=== PATIENT | female | born 1990 | race Caucasian/White ===

== ENCOUNTER → 2017-11-26 15:15 | Outpatient (CLI) | payer SELFPAY ==
[2017-11-26 18:36] LABS: Chlamydia Trachomatis by PCR Negative (Negative); Neisserai gonorrhoeae by PCR Negative (Negative); Probe Check PASS; Sample Adequacy Control PASS; Specimen Processing Control PASS
== END ==
PROVIDERS: Visit Provider Obstetrics & Gynecology
DX: Z12.4 Encounter for screening for malignant neoplasm of cervix (principal); Z11.3 Encounter for screening for infections with a predominantly sexual mode of transmission
CPT/HCPCS: 87491; 87591

== ENCOUNTER → 2017-12-03 13:40 | Outpatient (CLI) | payer MEDICAID, SELFPAY ==
[2017-12-03 15:44] LABS: Absolute Lymphocyte Count 2.38 X10^3/ul (0.83-4.51); Absolute Neutrophil Count 4.7 X10^3/uL (2.0-7.7); Basophil# 0.02 X10^3/uL; Basophil% 0.3 % (0-1); Eosinophil# 0.13 X10^3/uL; Eosinophils% 1.7 % (0-5); Hematocrit 33.8 % (37-47); Hemoglobin 11.6 g/dl (12.0-15.0); Lymphocyte # 2.38 X10^3/ul (4.0); Lymphocyte % 31.3 % (19-41); Mean Corp Hgb Conc 34.3 g/gl (32-36); Mean Corpuscular Hgb 30.1 pg (27.0-32.0); Mean Corpuscular Volume 87.6 fL (81-99); Mean Platelet Vol. 10.6 fl (6.2-12.0); Monocyte# 0.39 X10^3/uL; Monocyte% 5.1 % (0-10); Neutrophil # 4.67 X10^3/uL (2.7-7.7); Neutrophil % 61.5 % (47-70); Platelet Count 196 K/mm3 (150-450); RBC Distribution Width CV 12.6 % (11.6-14.6); RBC Distribution Width SD 39.4 fl (35.1-43.9); Red Blood Count 3.86 M/mm3 (4.2-5.4); White Blood Count 7.6 K/mm3 (4.4-11.0)
[2017-12-03 15:48] LABS: POSITIVE COUNT NO; POSITIVE DIFFERENTIAL NO; POSITIVE MORPHOLOGY NO
[2017-12-03 15:58] LABS: Color, Urine Yellow (Yellow); Glucose, Dipstick Normal (Normal); Ketone-Dipstick Negative (Negative); Leukocyte Esterase-Dipstick Negative /ul (Negative); Nitrite-Dipstick Negative (Negative); Occult Blood-Urine Negative /ul (Negative); Protein-Dipstick Negative (Negative); Specific Gravity, Urine 1.005 (1.002-1.030); Urine Bilirubin Dipstick Negative (Negative); Urine Clarity Clear (Clear); Urine Urobilinogen Normal (Normal)
[2017-12-03 16:28] LABS: Amphetamine Urine VISTA NEGATIVE (<1000 ng/mL); Barbiturate Urine VISTA NEGATIVE (< 200 ng/mL); Benzodiazepine Urine VISTA NEGATIVE (< 200 ng/mL); Cocaine Urine VISTA NEGATIVE (< 300 ng/mL); Ecstacy Urine VISTA NEGATIVE (< 500 ng/mL); Methadone Urine VISTA NEGATIVE (< 300 ng/mL); PCP Urine VISTA NEGATIVE (< 25 ng/mL); THC Urine VISTA NEGATIVE (< 50 ng/mL); Thyroid Stim Hormone (TSH) 0.05 uIU/mL (0.358-3.74); Vista UDS pH Range 7
[2017-12-03 16:57] LABS: HIV - WCH Non-Reactive (Nonreactive); Rubella IgG 227.9 IU/mL
[2017-12-03 16:58] LABS: COTININE Drug Screen Positive (<200 ng/mL)
[2017-12-05 08:22] LABS: HEPATITIS B SURFACE AG Negative (Negative); Hep C Antibodies 0.1 s/co ratio (0.0-0.9)
[2017-12-07 00:18] LABS: Prenatal RPR NONREACTIVE (NONREACTIVE)
== END ==
PROVIDERS: Visit Provider Obstetrics & Gynecology
DX: Z34.81 Encounter for supervision of other normal pregnancy, first trimester (principal)
CPT/HCPCS: 36415; 80307; 81002; 84443; 85025; 86703; 86762; 86803; 87340

== ENCOUNTER 2018-03-17 10:52 | Outpatient (CLI) | payer SELFPAY ==
[2018-03-17 11:12] VITALS: BMI 26.5
[2018-03-17 11:38] LABS: Color, Urine Yellow (Yellow); Glucose, Dipstick Normal (Normal); Ketone-Dipstick Negative (Negative); Leukocyte Esterase-Dipstick 100 /ul (Negative); Nitrite-Dipstick Negative (Negative); Occult Blood-Urine Negative /ul (Negative); Protein-Dipstick Negative (Negative); Specific Gravity, Urine 1.015 (1.002-1.030); Urine Bilirubin Dipstick Negative (Negative); Urine Clarity Sl. Cloudy (Clear); Urine Urobilinogen Normal (Normal); Urine pH 6.5 (5.0 - 8.0)
--- NOTE | 2018-03-18 11:33 | OB.TRI.HP_ITS ---
History of Present Illness Was patient seen by the physician?: Yes Reason For Visit: LOWER ABDOMINAL PRESSURE Date of Service: 03/17/18 Final CALEB: 06/24/18 Final CALEB Source: US <20 weeks Gestational age: 25 Weeks and 6 Days History of Present Illness: 25+ week intrauterine who presents with severe pelvic pain after lifting her child. She denies any contractions, bleeding, vaginal discharge. Good movement noted. Allergies No Known Allergies Allergy (Verified 03/17/18 11:31) Laboratory Studies: Laboratory Tests 03/17/18 Range/Units 10:55 Urine Color Yellow (Yellow) Urine Clarity Sl. Cloudy (Clear) Urine pH 6.5 (5.0 - 8.0) Ur Specific [place] 1.015 (1.002-1.030) Urine Protein Negative (Negative) mg/dl Urine Glucose (UA) Normal (Normal) mg/dl Urine Ketones Negative (Negative) mg/dl Urine Occult Blood Negative (Negative) /ul Urine Nitrite Negative (Negative) Urine Bilirubin Negative (Negative) mg/dL Urine Urobilinogen Normal (Normal) mg/dl Ur Leukocyte Esterase 100 H (Negative) /ul NST - FHR Rate Baby A NST Reactive:: Appropriate for gestational age Impression/Plan 25+ week intrauterine with severe symphysis pubis pain and round ligament pain. Recommended Tylenol as needed at home. UA sent and was negative. Return for routine follow-up in the office. heart tones were reassuring.
== END 2018-03-17 11:55 | disposition home or self-care (01) ==
LOC: WPOUT 11:00 → WP 11:01
PROVIDERS: Visit Provider Obstetrics & Gynecology
DX: O26.892 Other specified pregnancy related conditions, second trimester (principal); R10.2 Pelvic and perineal pain
CPT/HCPCS: 59050; 81002; 87086; 87088; 99218; G0378

== ENCOUNTER → 2018-04-03 13:40 | Outpatient (CLI) | payer SELFPAY ==
[2018-04-03 16:00] LABS: Hematocrit 32.2 % (37-47); Hemoglobin 10.9 g/dl (12.0-15.0); Mean Corp Hgb Conc 33.9 g/gl (32-36); Mean Corpuscular Hgb 30.4 pg (27.0-32.0); Mean Corpuscular Volume 89.7 fL (81-99); Mean Platelet Vol. 10.3 fl (6.2-12.0); Platelet Count 212 K/mm3 (150-450); RBC Distribution Width CV 12.5 % (11.6-14.6); RBC Distribution Width SD 39.6 fl (35.1-43.9); Red Blood Count 3.59 M/mm3 (4.2-5.4); White Blood Count 9.4 K/mm3 (4.4-11.0)
[2018-04-03 16:03] LABS: Scan Indicated on CBC? Y/N NO
[2018-04-03 16:05] LABS: Glucose Challenge Gest 1H 50g 111 mg/dL (70-140); Thyroid Stim Hormone (TSH) 0.45 uIU/mL (0.358-3.74)
--- OUTSIDE RECORDS SUMMARY | 2018-05-29 23:08 | XMS RPT_ITS ---
:1990 Author Organization OHIP Support Name Relationship Address Phone REEMA DUBON Unavailable [address] + [place] [address] UE Unavailable Unavailable Unavailable REEMA DUBON Unavailable [address] + [place] [address] UE Unavailable Unavailable Unavailable FORTE, WILFREDO Unavailable [address] + [place] [address] REEMA BAIN Unavailable [address] [place] [address] NOT GIVEN Unavailable Unavailable Unavailable UE Unavailable Unavailable Unavailable UE Unavailable Unavailable Unavailable FORTE, WILFREDO Unavailable [address] + [place] [address] REEMA BAIN Unavailable [address] [place] [address] NOT GIVEN Unavailable Unavailable Unavailable FORTE, WILFREDO Unavailable [address] + [place] [address] REEMA BAIN Unavailable [address] [place] [address] NOT GIVEN Unavailable Unavailable Unavailable FORTE, WILFREDO Unavailable [address] + [place] [address] REEMA BAIN Unavailable [address] [place] [address] NOT GIVEN Unavailable Unavailable Unavailable FORTE, WILFREDO Unavailable [address] + [place] [address] REEMA BAIN Unavailable [address] [place] [address] NOT GIVEN Unavailable Unavailable Unavailable FORTE, WILFREDO Unavailable [address] + [place] [address] REEMA BAIN Unavailable [address] [place] [address] NOT GIVEN Unavailable Unavailable Unavailable FORTE, WILFREDO Unavailable [address] + [place] [address] REEMA BAIN Unavailable [address] [place] [address] NOT GIVEN Unavailable Unavailable Unavailable WILFREDO FORTE Unavailable [address] + [place] [address] REEMA BAIN Unavailable [address] [place] [address] NOT GIVEN Unavailable Unavailable Unavailable Care Team Providers Name Role Phone Pieter Manriquez Attending Unavailable Pieter Manriquez Attending Unavailable Pieter Manriquez Attending Unavailable Mitra, Pieter Attending Unavailable MARGARITA, DR DAVIDA HARRIS Admitting Unavailable MARGARITA, DR DAVIDA HARRIS Attending Unavailable MARGARITA, DR DAVIDA HARRIS Primary Care Unavailable MARGARITA, DR DAVIDA HARRIS Admitting Unavailable MARGARITA, DR DAVIDA HARRIS Attending Unavailable MARGARITA, DR DAVIDA HARRIS Primary Care Unavailable CLINT SALMON Admitting Unavailable LUIS ANTONIO, CLINT Attending Unavailable CLINT SALMON Primary Care Unavailable MARGARITA, DR DAVIDA HARRIS Admitting Unavailable MARGARITA, DR DAVIDA HARRIS Attending Unavailable MARGARITA, DR DAVIDA HARRIS Primary Care Unavailable VACCARIELLO, PIETER Consulting Unavailable PROVIDER, UNKNOWN Consulting Unavailable PROVIDER, UNKNOWN Consulting Unavailable PROVIDER, UNKNOWN Consulting Unavailable MARGARITA, DR DAVIDA HARRIS Admitting Unavailable MARGARITA, DR DAVIDA HARRIS Attending Unavailable MARGARITA, DR DAVIDA HARRIS Primary Care Unavailable VACCARIELLO, PIETER Consulting Unavailable PROVIDER, UNKNOWN Consulting Unavailable PROVIDER, UNKNOWN Consulting Unavailable PROVIDER, UNKNOWN Consulting Unavailable MARGARITA, DR DAVIDA HARRIS Admitting Unavailable MARGARITA, DR DAVIDA HARRIS Attending Unavailable MARGARITA, DR DAVIDA HARRIS Primary Care Unavailable VACCARIELLO, PIETER Consulting Unavailable PROVIDER, UNKNOWN Consulting Unavailable PROVIDER, UNKNOWN Consulting Unavailable PROVIDER, UNKNOWN Consulting Unavailable MARGARITA, DR DAVIDA HARRIS Admitting Unavailable MARGARITA, DR DAVIDA HARRIS Attending Unavailable MARGARITA, DR DAVIDA HARRIS Primary Care Unavailable VACCARIELLO, PIETER Consulting Unavailable PROVIDER, UNKNOWN Consulting Unavailable PROVIDER, UNKNOWN Consulting Unavailable PROVIDER, UNKNOWN Consulting Unavailable MARGARITA, DR DAVIDA HARRIS Admitting Unavailable MARGARITA, DR DAVIDA HARRIS Attending Unavailable MARGARITA, DR DAVIDA HARRIS Primary Care Unavailable VACCARIELLO, PIETER Consulting Unavailable PROVIDER, UNKNOWN Consulting Unavailable PROVIDER, UNKNOWN Consulting Unavailable PROVIDER, UNKNOWN Consulting Unavailable Clint Penaloza Attending Unavailable Clint Penaloza Attending Unavailable PROBLEMS PROBLEMS DATE TYPE CONDITION / CODE ATTENDING STATUS SOURCE 04/03/2018 Unknown Z34.83 - Encounter Pieter Manriquez for supervision of [facility] normal Hospital , third Repository trimester / Z34.83(ICD-10) 12/03/2017 Unknown Z34.81 - Encounter Pieter Manriquez for supervision of [facility] other normal Hospital , first Repository trimester / Z34.81(ICD-10) 12/14/2017 Unknown Z12.4 - Encounter Pieter Manriquez for screening for [facility] malignant neoplasm Hospital of cervix / Repository Z12.4(ICD-10) 11/19/[address] Mary AVILA Diagnosis diffuse goiter DAVIDA HARRIS [facility] without thyrotoxic Hospital crisis or storm / Repository E0500(ICD-10) 11/19/[address] Mary AVILA Diagnosis diffuse goiter DAVIDA HARRIS [facility] without thyrotoxic Hospital crisis or storm / Repository E0500(ICD-10) 06/08/2017 Admitting Unknown / Mary Penaloza [facility] Medical diagnosis UNK(Unknown) Clint Andrew [facility] Repository PROCEDURES PROCEDURES No Procedure Records FoundRESULTS RESULTS CBC-COMPLETE BLOOD CNT Collected: 04/03/2018 Status: F Source: [place] NO DIFF 1:45 PM [facility] TYPE CODE TESTS RESULT OUT OF RANGE REFERENCE UNITS LAB L100.1000 4.4-11.0 K/mm3 Normal WBC 9.4 LAB L100.1200 4.2-5.4 M/mm3 Low RBC 3.59 LAB L100.1300 12.0-15.0 g/dl Low HGB 10.9 LAB L100.1400 37-47 % Low HCT 32.2 LAB L100.1500 81-99 fL Normal MCV 89.7 LAB L100.1600 27.0-32.0 pg Normal MCH 30.4 LAB L100.1700 32-36 g/gl Normal MCHC 33.9 LAB L100.1810 11.6-14.6 % Normal RDW CV 12.5 LAB L100.1820 35.1-43.9 fl Normal RDW SD 39.6 LAB L100.1900 150-450 K/mm3 Normal PLT 212 LAB L100.2000 6.2-12.0 fl Normal MPV 10.3 Performed By: #### L100.0500 #### [facility] [address] [place], [place], [address] GLUCOSE CHALLENGE GEST Collected: 04/03/2018 Status: F Source: [place] 1H 50G 1:45 PM [facility] Order Comment: ADD TO GLUCH TUBE TYPE CODE TESTS RESULT OUT OF RANGE REFERENCE UNITS LAB L501.0250 70-140 mg/dL Normal GLU GEST 111 50g 1H Performed By: #### L501.0250, L501.9520 #### [facility] [address] [place], [address] THYROID STIM HORMONE Collected: 04/03/2018 Status: F Source: [place] (TSH) 1:45 PM [facility] Order Comment: ADD TO GLUCH TUBE TYPE CODE TESTS RESULT OUT OF RANGE REFERENCE UNITS LAB L501.9520 0.358-3.74 uIU/mL Normal TSH 0.45 Performed By: #### L501.0250, L501.9520 #### [facility] [address] [place], [address] ANTIBODY SCREEN Collected: 04/03/2018 Status: F Source: [place] 1:45 PM [facility] TYPE CODE TESTS RESULT OUT OF RANGE REFERENCE UNITS LAB B100.4000 Normal Antibody NEGATIVE Screen Performed By: #### B100.4000 #### [facility] [address] [place], [address] URINALYSIS, ROUTINE Collected: 03/17/2018 Status: F Source: [place] (DIPSTICK) 10:55 AM [facility] Order Comment: How was Urine Obtained? HAND HARDENER TO SPECIFY TYPE CODE TESTS RESULT OUT OF RANGE REFERENCE UNITS LAB L400.3000 Yellow COLOR Normal Yellow LAB L400.3050 Clear Normal CLARITY Sl. Cloudy LAB L400.3200 Normal mg/dl Normal GLUCOSE, UR Normal LAB L400.3300 Negative mg/dL Normal BILIRUBIN URINE Negative LAB L400.3400 Negative mg/dl Normal KETONE UR Negative LAB L400.3465 1.002-1.030 Normal SP.GR. DIPSTX 1.015 LAB L400.3550 5.0 - 8.0 pH UR Normal 6.5 LAB L400.3600 Negative mg/dl PROT Normal DIPSTX Negative LAB L400.3700 Normal mg/dl Normal UROBILI Normal LAB L400.3750 Negative Normal NITRITE UR Negative LAB L400.3780 Negative /ul Normal OCCULT BLOOD-UR Negative LAB L400.3800 Negative /ul High LEUK ESTERASE 100 Performed By: #### L400.2011 #### [facility] [address] [place], [place], [address] Observed: 03/17/2018 Status: F Source: [place] CULTURE, URINE 10:55 AM [facility] Urine Culture Below infection level. ORGANISM 1: Mixed Gram Positive Organisms [place] Count 1000-10,000 Performed By: #### M100.0650 #### [facility] [address], [address] TSH Collected: 01/11/2018 Status: F Source: [facility] 2:27 PM [place] REPOSITORY TYPE CODE TESTS RESULT OUT OF RANGE REFERENCE UNITS LAB TSH(LOINC) 0.34 - 5.60 uIU/ml TSH 0.55 Performed By: #### [id number] #### [facility],[address] [place], [place] [address] T4-FREE (FREE Collected: 01/11/2018 Status: F Source: [facility] THYROXINE) 2:27 PM [place] REPOSITORY TYPE CODE TESTS RESULT OUT OF RANGE REFERENCE UNITS LAB T4 0.61 - 1.12 ng/dl FREE(LOINC) T4 FREE 0.80 Result Comment: *SPECIMENS FROM PATIENTS WHO ARE UNDERGOING BIOTIN THERAPY AND/OR INGESTING BIOTIN SUPPLEMENTS MAY HAVE FALSE HIGH RESULTS. Performed By: #### [id number] #### [facility],[address] [place] [address] T3, FREE Collected: 01/11/2018 Status: F Source: [facility] 2:27 PM [place] REPOSITORY TYPE CODE TESTS RESULT OUT OF RANGE REFERENCE UNITS LAB T3, FREE(LOINC) T3, FREE Result Comment: _T3, FREE_ T3, FREE Reported: 01/14/2018 07:20 Status=F TEST RESULT FLAG RANGE UNITS T3, FREE 2.6 2.3-4.2 pg/mL 01/14/18.0734.rfl.COMPLETE.AMRR .3051-0 Test Performed by [email or web address], [employer] [facility], [address] [place] [address] Karthik Gonzales M.D., Ph.D., Director of Laboratories , [facility] [id number] Performed By: #### [id number] #### [facility],[address] [place] [address] URINE DRUG SCREEN Collected: 12/03/2017 Status: F Source: [place] (VISTA) 1:50 PM [facility] Order Comment: List of Drugs Taken or Suspected? UNK TYPE CODE TESTS RESULT OUT OF RANGE REFERENCE UNITS LAB L505.0075 TO BE Normal CONFIRMED Result Comment: CONFIRMATORY TESTING FOR ALL POSITIVE URINE DRUG SCREEN RESULTS WILL ONLY BE SENT OUT UPON PHYSICIAN ORDER. VISTA Urine Drug Screen methods provide only preliminary analytical test results. A more specific alternate chemical method must be used in order to obtain a confirmed analytical result. Gas chromatography/mass spectrometery (GC/MS) is the preferred confirmatory method. Clinical consideration and professional judgement should be applied to any drug of abuse test result, particularly when preliminary positive results are used. URINE TCA TESTING MUST BE ORDERED SEPARATELY. USE TEST MNEMONIC: [facility] LAB L505.5005 VISTA UDS PH 7 Normal LAB L505.5015 <1000 ng/mL AMPHETAMINES Normal NEGATIVE LAB L505.5025 < 200 ng/mL BARBITIURATES Normal NEGATIVE LAB L505.5035 < 200 ng/mL BENZODIAZIPINE Normal NEGATIVE LAB L505.5045 < 300 ng/mL COCAINE Normal NEGATIVE LAB L505.5055 < 500 ng/mL ECSTACY Normal NEGATIVE LAB L505.5065 < 300 ng/mL METHADONE Normal NEGATIVE LAB L505.5075 < 300 ng/mL OPIATES Normal NEGATIVE LAB L505.5085 < 25 ng/mL PCP Normal NEGATIVE LAB L505.5095 < 50 ng/mL THC Normal NEGATIVE Performed By: #### L505.5000, L505.6240 #### [facility] [address] [facility]. [place], [place], [address] NICOTINE URINE DRUG Collected: 12/03/2017 Status: F Source: [place] SCREEN 1:50 PM [facility] Order Comment: List of Drugs Taken or Suspected? UNK TYPE CODE TESTS RESULT OUT OF RANGE REFERENCE UNITS LAB L505.6250 TO BE Normal CONFIRMED Result Comment: CONFIRMATORY TESTING FOR ALL POSITIVE URINE DRUG SCREEN RESULTS WILL ONLY BE SENT OUT UPON PHYSICIAN ORDER. The results of Urine Drug Screen methods provide only preliminary analytical test results. A more specific alternate chemical method must be used in order to obtain a confirmed analytical result. Gas chromatography/mass spectrometery (GC/MS) is the preferred confirmatory method. Clinical consideration and professional judgement should be applied to any drug of abuse test result, particularly when preliminary positive results are used. LAB L505.6270 <200 ng/mL High COT DRG Positive SCREEN Result Comment: Cotinine is the first-stage metabolite of Nicotine. Performed By: #### L505.5000, L505.6240 #### [facility] [address] [facility] [place], [place], [address] CBC W/DIFF, AUTOMATED Collected: 12/03/2017 Status: F Source: [place] 1:50 PM [facility] TYPE CODE TESTS RESULT OUT OF RANGE REFERENCE UNITS LAB L100.1000 4.4-11.0 K/mm3 Normal WBC 7.6 LAB L100.1200 4.2-5.4 M/mm3 Low RBC 3.86 LAB L100.1300 12.0-15.0 g/dl Low HGB 11.6 LAB L100.1400 37-47 % Low HCT 33.8 LAB L100.1500 81-99 fL Normal MCV 87.6 LAB L100.1600 27.0-32.0 pg Normal MCH 30.1 LAB L100.1700 32-36 g/gl Normal MCHC 34.3 LAB L100.1810 11.6-14.6 % Normal RDW CV 12.6 LAB L100.1820 35.1-43.9 fl Normal RDW SD 39.4 LAB L100.1900 150-450 K/mm3 Normal PLT 196 LAB L100.2000 6.2-12.0 fl Normal MPV 10.6 LAB L100.2100 47-70 % Normal NEUT% 61.5 LAB L100.2200 19-41 % Normal LY% 31.3 LAB L100.2300 0-10 % Normal MONO% 5.1 LAB L100.2400 0-5 % Normal EO% 1.7 LAB L100.2500 0-1 % Normal BASO% 0.3 LAB L100.2550 0.0-0.9 % Normal IM GRAN % 0.100 Result Comment: IG% - Immature Granulocytes (promyelocytes, myelocytes and metamyelocytes) > 1% indicates that a LEFT SHIFT is Present. LAB L100.2620 2.0-7.7 X10 3/uL Normal Absolute Neut 4.7 LAB L100.2720 0.83-4.51 X10 3/ul Normal Absolute Lymph 2.38 Performed By: #### L100.0100 #### [facility] [address] [place], [place], [address] URINALYSIS, ROUTINE Collected: 12/03/2017 Status: F Source: [place] (DIPSTICK) 1:50 PM [facility] Order Comment: How was Urine Obtained? Urine, Random TYPE CODE TESTS RESULT OUT OF RANGE REFERENCE UNITS LAB L400.3000 Yellow COLOR Normal Yellow LAB L400.3050 Clear Normal CLARITY Clear LAB L400.3200 Normal mg/dl Normal GLUCOSE, UR Normal LAB L400.3300 Negative mg/dL Normal BILIRUBIN URINE Negative LAB L400.3400 Negative mg/dl Normal KETONE UR Negative LAB L400.3465 1.002-1.030 Normal SP.GR. DIPSTX 1.005 LAB L400.3550 5.0 - 8.0 pH UR Normal 7.0 LAB L400.3600 Negative mg/dl PROT Normal DIPSTX Negative LAB L400.3700 Normal mg/dl Normal UROBILI Normal LAB L400.3750 Negative Normal NITRITE UR Negative LAB L400.3780 Negative /ul Normal OCCULT BLOOD-UR Negative LAB L400.3800 Negative /ul LEUK Normal ESTERASE Negative Performed By: #### L400.2010 #### [facility] [address] [facility] [address] THYROID STIM HORMONE Collected: 12/03/2017 Status: F Source: [place] (TSH) 1:50 PM [facility] TYPE CODE TESTS RESULT OUT OF RANGE REFERENCE UNITS LAB L501.9520 0.358-3.74 uIU/mL Low TSH 0.05 Performed By: #### L501.9520 #### [facility] [address] RUBELLA IGG Collected: 12/03/2017 Status: F Source: [place] 1:50 PM [facility] TYPE CODE TESTS RESULT OUT OF RANGE REFERENCE UNITS LAB L509.4000 IU/mL Normal Rubella IgG 227.9 Result Comment: Antibody results Interpretation of Immune Status < 5 IU/ml Presumed Non-immune 5 - < 10 IU/ml Equivocal > or = 10 IU/ml Presumed Immune Performed By: #### L509.4000, L3890.6005 #### [facility] [place], [place], [address] HIV - WCH Collected: 12/03/2017 Status: F Source: [place] 1:50 PM [facility] TYPE CODE TESTS RESULT OUT OF RANGE REFERENCE UNITS LAB L3890.6005 Nonreactive Normal HIV - [facility] Non-Reactive Performed By: #### L509.4000, L3890.6005 #### [facility] [address] T AND S-NO Collected: 12/03/2017 Status: F Source: [place] CHARGE W/PNP 1:50 PM [facility] Order Comment: Reason for Type AND Screen/Red Cells: Surgery? N TYPE CODE TESTS RESULT OUT OF RANGE REFERENCE UNITS LAB B10.0800 A Normal BLOOD NEGATIVE TYPE GEL LAB B100.4050 Normal Ab SCREEN NEGATIVE GEL Performed By: #### B100.7550 #### [facility] [address] [facility] [place], [place], [address] HEPATITIS B SURFACE Collected: 12/03/2017 Status: F Source: [place] AG 1:50 PM [facility] TYPE CODE TESTS RESULT OUT OF RANGE REFERENCE UNITS LAB L3100.0400 Negative Normal HB Negative SURF AG Result Comment: Performed at: [facility] [id number] Front Office Assistant: Dean Lloyd PhD, Phone: [phone] Performed By: #### L3100.0390, L3100.0625 #### [facility] (refer to report for specific site) refer to report for address and phone number HEPATITIS C ANTIBODIES Collected: 12/03/2017 Status: F Source: [place] 1:50 PM [facility] TYPE CODE TESTS RESULT OUT OF RANGE REFERENCE UNITS LAB L3100.0650 0.0-0.9 s/co ratio Normal HEP C AB 0.1 Result Comment: Negative: < 0.8 Indeterminate: 0.8 - 0.9 Positive: > 0.9 The CDC recommends that a positive HCV antibody result be followed up with a HCV Nucleic Acid Amplification test (218792). Performed By: #### L3100.0390, L3100.0625 #### [facility] (refer to report for specific site) refer to report for address and phone number RPR Collected: 12/03/2017 Status: F Source: [place] 1:50 PM [facility] TYPE CODE TESTS RESULT OUT OF REFERENCE UNITS RANGE LAB L700.5100 NONREACTIVE Normal RPR NONREACTIVE Performed By: #### L700.5100 #### [facility] [address] [facility]. [place], [place], [id number] CT/NG WCH BY PCR Collected: 11/26/2017 Status: F Source: [place] 2:00 PM [facility] TYPE CODE TESTS RESULT OUT OF RANGE REFERENCE UNITS LAB L8200.2100 Negative Normal Chlam Negative Trac PCR LAB L8200.2200 Negative Normal NG by Negative PCR Performed By: #### L8200.2000 #### [facility] [address] [facility] [place], [address] T4-FREE (FREE Collected: 11/19/2017 Status: F Source: [facility] THYROXINE) 7:20 PM [place] REPOSITORY TYPE CODE TESTS RESULT OUT OF RANGE REFERENCE UNITS LAB T4 0.61 - 1.12 ng/dl FREE(LOINC) T4 FREE 0.74 Result Comment: *SPECIMENS FROM PATIENTS WHO ARE UNDERGOING BIOTIN THERAPY AND/OR INGESTING BIOTIN SUPPLEMENTS MAY HAVE FALSE HIGH RESULTS. Performed By: #### [id number] #### [address] [address] TSH Collected: 11/19/2017 Status: F Source: [facility] 7:20 PM [place] REPOSITORY TYPE CODE TESTS RESULT OUT OF RANGE REFERENCE UNITS LAB TSH(LOINC) 0.34 - 5.60 uIU/ml Low TSH 0.09 Performed By: #### [id number] #### [address] [address] T3, FREE Collected: 11/19/2017 Status: F Source: [facility] 7:20 [facility] REPOSITORY TYPE CODE TESTS RESULT OUT OF RANGE REFERENCE UNITS LAB T3, FREE(LOINC) T3, FREE Result Comment: _T3, FREE_ T3, FREE Reported: 11/22/2017 13:04 Status=F TEST RESULT FLAG RANGE UNITS T3, FREE 2.8 2.3-4.2 pg/mL 11/22/17.1316.Neelam.AMRR .3051-0 Test Performed by Angela Aguirre [email or web address] [facility], [address] [place] [address] Karthik Gonzales M.D., Ph.D., Director of Laboratories , [facility] [id number] Performed By: #### [id number] #### [facility],[address] [place], [place] [address] T4-FREE (FREE Collected: 10/26/2017 Status: F Source: [facility] THYROXINE) 3:10 PM [place] REPOSITORY TYPE CODE TESTS RESULT OUT OF RANGE REFERENCE UNITS LAB T4 0.61 - 1.12 ng/dl FREE(LOINC) T4 FREE 0.82 Result Comment: *SPECIMENS FROM PATIENTS WHO ARE UNDERGOING BIOTIN THERAPY AND/OR INGESTING BIOTIN SUPPLEMENTS MAY HAVE FALSE HIGH RESULTS. Performed By: #### [id number] #### [facility],[address] [place], [place] [id number] TSH Collected: 10/26/2017 Status: F Source: [facility] 3:10 PM [place] REPOSITORY TYPE CODE TESTS RESULT OUT OF RANGE REFERENCE UNITS LAB TSH(LOINC) 0.34 - 5.60 uIU/ml Low TSH 0.02 Performed By: #### [id number] #### [facility],[address] [place], [place] [address] T3, FREE Collected: 10/26/2017 Status: F Source: [facility] 3:10 PM [place] REPOSITORY TYPE CODE TESTS RESULT OUT OF RANGE REFERENCE UNITS LAB T3, FREE(LOINC) T3, FREE Result Comment: _T3, FREE_ T3, FREE Reported: 10/30/2017 13:44 Status=F TEST RESULT FLAG RANGE UNITS T3, FREE 3.3 2.3-4.2 pg/mL 10/30/17.1355.Neelam.AMRR .3051-0 Test Performed by [email or web address], [email or web address] [facility], [address] [place] [address] Karthik Gonzales M.D., Ph.D., Director of Laboratories , CLIA [id number] Performed By: #### [id number] #### [facility],[address] [place], [place] [address] T4-FREE (FREE Collected: 09/06/2017 Status: F Source: [facility] THYROXINE) 1:30 PM [place] REPOSITORY TYPE CODE TESTS RESULT OUT OF RANGE REFERENCE UNITS LAB T4 0.61 - 1.12 ng/dl FREE(LOINC) T4 FREE 0.80 Result Comment: *SPECIMENS FROM PATIENTS WHO ARE UNDERGOING BIOTIN THERAPY AND/OR INGESTING BIOTIN SUPPLEMENTS MAY HAVE FALSE HIGH RESULTS. Performed By: #### [id number] #### [facility],[address] [place], [place] [address] T3, FREE Collected: 09/06/2017 Status: F Source: [facility] 1:30 PM [place] REPOSITORY TYPE CODE TESTS RESULT OUT OF RANGE REFERENCE UNITS LAB T3, FREE(LOINC) T3, FREE Result Comment: _T3, FREE_ T3, FREE Reported: 09/13/2017 07:21 Status=F TEST RESULT FLAG RANGE UNITS T3, FREE 3.5 2.3-4.2 pg/mL 09/13/17.0733.rflBERTRAM.AMRR .3051-0 Test Performed by [email or web address], [employer] [facility], [address] [place] [address] Karthik Gonzales M.D., Ph.D., Director of Laboratories , CLIA [id number] Performed By: #### [id number] #### [place] [address] TSH Collected: 09/06/2017 Status: F Source: [place] 1:30 PM [place] REPOSITORY TYPE CODE TESTS RESULT OUT OF RANGE REFERENCE UNITS LAB TSH(LOINC) 0.34 - 5.60 uIU/ml Low TSH 0.01 Performed By: #### [id number] #### [place] [address] CMP WITH EGFR Collected: 07/11/2017 Status: F Source: [place] 11:03 AM [place] REPOSITORY TYPE CODE TESTS RESULT OUT OF RANGE REFERENCE UNITS LAB CMP with eGFR(LOINC) CMP with eGFR Result Comment: COMPREHENSIVE METABOLIC PANEL LAB SODIUM(LOINC) 136 - 145 mmol/l SODIUM 139 LAB POTASSIUM(LOINC) 3.5 - 5.1 mmol/L POTASSIUM 3.7 LAB CHLORIDE(LOINC) 98 - 107 mmol/L CHLORIDE 105 LAB CO2(LOINC) 21.0 - mmol/L 31.0 CO2 27.4 LAB GLUCOSE(LOINC) 74 - 106 mg/dl GLUCOSE 84 LAB BUN(LOINC) 6 - 20 mg/dl BUN 6 LAB CREATININE(LOINC) 0.6 - 1.2 mg/dl CREATININE 0.7 LAB AST/SGOT(LOINC) 13 - 39 U/L AST/SGOT Low 11 LAB ALK PHOS(LOINC) 38 - 126 U/L ALK PHOS 55 LAB CALCIUM(LOINC) 8.6 - mg/dl 10.2 CALCIUM 10.2 LAB TOTAL 6.4 - 8.3 g/dl PROTEIN(LOINC) TOTAL PROTEIN 7.2 LAB ALBUMIN(LOINC) 3.4 - 4.8 g/dL ALBUMIN 4.6 LAB GLOBULIN(LOINC) 1.5 - 3.8 G/DL GLOBULIN 2.6 LAB A/G RATIO(LOINC) 0.9 - 1.6 A/G High RATIO 1.8 LAB TOTAL BILI(LOINC) 0.0 - 1.5 mg/dl TOTAL BILI 0.4 LAB B/C RATIO(LOINC) 0 - 30 ratio B/C RATIO 9 LAB ALT/SGPT(LOINC) 8 - 35 U/L ALT/SGPT 9 LAB ANION GAP(LOINC) 10 - 20 mmol/L ANION GAP 10 LAB AGE(LOINC) years AGE 26 LAB eGFR(LOINC) 60 - 999 ML/MINUTE eGFR >60 LAB eGFR(AA)(LOINC) 60 - 999 ML/MINUTE eGFR(AA) >60 Result Comment: ACCORDING TO THE NATIONAL KIDNEY DISEASE EDUCATION PROGRAM(NKDE), A NORMAL eGFR IS A VALUE GREATER THAN OR EQUAL TO 60 ML/MIN/1.73 SQ METERS. CHRONIC KIDNEY DISEASE: <60mL/MIN/1.73 SQ METERS KIDNEY FAILURE: <15mL/MIN/1.73 SQ METERS THIS TEST SHOULD ONLY BE USED FOR PATIENTS 18 YEARS OF AGE AND OLDER. Performed By: #### [id number] #### [place] [address] TSH Collected: 07/11/2017 Status: F Source: [facility] 11:03 [facility] REPOSITORY TYPE CODE TESTS RESULT OUT OF RANGE REFERENCE UNITS LAB TSH(LOINC) 0.34 - 5.60 uIU/ml Low TSH 0.10 Performed By: #### [id number] #### [place] [address] T4-FREE (FREE Collected: 07/11/2017 Status: F Source: [facility] THYROXINE) 11:03 [facility] REPOSITORY TYPE CODE TESTS RESULT OUT OF RANGE REFERENCE UNITS LAB T4 0.61 - 1.12 ng/dl FREE(LOINC) T4 FREE 0.75 Result Comment: *SPECIMENS FROM PATIENTS WHO ARE UNDERGOING BIOTIN THERAPY AND/OR INGESTING BIOTIN SUPPLEMENTS MAY HAVE FALSE HIGH RESULTS. Performed By: #### [id number] #### [facility],[address] [place] [address] VITAMIN D, 25 Collected: 07/11/2017 Status: F Source: [facility] 11:03 [facility] REPOSITORY TYPE CODE TESTS RESULT OUT OF RANGE REFERENCE UNITS LAB VitD(LOINC) 30.00 - 100 ng/mL VitD 30.02 Result Comment: 25-OHD3 indicates both endogenous production and supplementation. 25-OHD2 is an indicator of exogenous sources, such as diet or supplementation. Therapy is based on measurement of Total 25-OHD, with levels <20 ng/mL indicative of Vitamin D deficiency, while levels between 20 ng/mL and 30 ng/mL suggest insufficiency. Optimal levels are >=30ng/mL. Vitamin D, 25-OH D3 Not Established Vitamin D, 25-OH D2 Not Established Performed By: #### [id number] #### [address] [address] T3, FREE Collected: 07/11/2017 Status: F Source: [facility] 11:03 [facility] REPOSITORY TYPE CODE TESTS RESULT OUT OF RANGE REFERENCE UNITS LAB T3, FREE(LOINC) T3, FREE Result Comment: _T3, FREE_ T3, FREE Reported: 07/13/2017 08:11 Status=F TEST RESULT FLAG RANGE UNITS T3, FREE 3.3 2.3-4.2 pg/mL 07/13/17.0823.rfl.COMPLETE.AMRR .3051-0 Test Performed by Angela Aguirre [email or web address], [address] [place] [address] Karthik Gonzales M.D., Ph.D., Director of Laboratories , [place] [id number] Performed By: #### [id number] #### [facility],[address] [place] [address] MODIFIED BARIUM Observed: 06/14/2017 Status: F Source: [facility] 1:46 PM [place] REPOSITORY [place] [id number] Patient: JEROME BAIN Phone#: : 1990 Age: 26 Gender: F Pt. Type: Out Account: [id number] Location: [facility] Ordering: CLINT SALMON Exam Date: 06/14/2017/13:04 Family Phys: Charge Code: [id number] Physician: Yates Order #: [id number] DLP Dose#: PROCEDURE: CINERADIOGRAPHY MODIFIED BARIUM SWALLOW COMPARISON: None. INDICATIONS: Dysphagia TECHNIQUE: A swallowing evaluation was performed with fluoroscopy and speech therapy in the usual manner. TOTAL DOSE: 36.52 mGy FINDINGS: ORAL PHASE: Normal deglutition. PHARYNGEAL PHASE: Normal swallowing. ASPIRATION: None. STRUCTURE: There is narrowing of the proximal esophagus presumably related to the thyroid compression based on clinical history. No visible obstruction, stricture, or dilatation. OTHER: There is poor peristalsis demonstrated. Pudding and mixed texture fluids were delayed in emptying. Emptying was facilitated with thin liquid. CONCLUSION: 1. Poor peristalsis is noted. Delay in emptying of esophageal contents is facilitated with a thin liquids. Dictated by: Tabatha Monroe MD on 06/14/2017 at 14:01 Approved by: Tabatha Monroe MD on 06/14/2017 at 14:01 T4-FREE (FREE Collected: 05/26/2017 Status: F Source: [facility] THYROXINE) 11:23 AM [place] REPOSITORY TYPE CODE TESTS RESULT OUT OF RANGE REFERENCE UNITS LAB T4 0.61 - 1.12 ng/dl FREE(LOINC) T4 FREE 0.67 Result Comment: *SPECIMENS FROM PATIENTS WHO ARE UNDERGOING BIOTIN THERAPY AND/OR INGESTING BIOTIN SUPPLEMENTS MAY HAVE FALSE HIGH RESULTS. Performed By: #### [id number] #### [facility],[address] [place], [place] [address] T3, FREE Collected: 05/26/2017 Status: F Source: [facility] 11:23 AM [place] REPOSITORY TYPE CODE TESTS RESULT OUT OF RANGE REFERENCE UNITS LAB T3, FREE(LOINC) T3, FREE Result Comment: _T3, FREE_ T3, FREE Reported: 05/28/2017 22:02 Status=F TEST RESULT FLAG RANGE UNITS T3, FREE 2.6 2.3-4.2 pg/mL 05/28/17.2215.rfl.COMPLETE.AMRR .3051-0 Test Performed by [email or web address], [email or web address], [address] [place] [address] Karthik Gonzales M.D., Ph.D., Director of Laboratories , [place] [id number] Performed By: #### [id number] #### [facility],[address] [place] [address] T4-FREE (FREE Collected: 05/10/2017 Status: F Source: [facility] [place] THYROXINE) 6:02 PM [place] REPOSITORY TYPE CODE TESTS RESULT OUT OF RANGE REFERENCE UNITS LAB T4 0.61 - 1.12 ng/dl FREE(LOINC) Low T4 FREE 0.60 Result Comment: *SPECIMENS FROM PATIENTS WHO ARE UNDERGOING BIOTIN THERAPY AND/OR INGESTING BIOTIN SUPPLEMENTS MAY HAVE FALSE HIGH RESULTS. Performed By: #### [id number] #### [address] [address] TSH Collected: 05/10/2017 Status: F Source: [facility] 6:02 [facility] REPOSITORY TYPE CODE TESTS RESULT OUT OF RANGE REFERENCE UNITS LAB TSH(LOINC) 0.34 - 5.60 uIU/ml Low TSH <0.01 Performed By: #### [id number] #### [facility],[address] [place] [address] T3, FREE Collected: 05/10/2017 Status: F Source: [facility] 6:02 [facility] REPOSITORY TYPE CODE TESTS RESULT OUT OF RANGE REFERENCE UNITS LAB T3, FREE(LOINC) T3, FREE Result Comment: _T3, FREE_ T3, FREE Reported: 05/15/2017 07:35 Status=F TEST RESULT FLAG RANGE UNITS T3, FREE 2.3 2.3-4.2 pg/mL 05/15/17.0747.[place] .AMRR .3051-0 Test Performed by Angela Aguirre, [facility], [address] [place] [address] Karthik Gonzales M.D., Ph.D., Director of Laboratories , [facility] [id number] 05/15/17.1605.XMT.SENT REF 05/15/17.1606.XMT.SENT REF Performed By: #### [id number] #### [facility],[address] [place] [address] ALLERGIES ALLERGIES DATE TYPE / CODE NAME / CODE REACTION SEVERITY SOURCE 03/17/2018 Drug No Known Unknown Lili[place] Allergy/[id number](S Allergies/F[facility]) [address](RXNORM) Hospital Repository Miscellaneous No Known Moderate [place] [place] Allergy/[id number](S Allergies ([facility]) Modifier) Hospital (Qualifier Repository Value) ENCOUNTERS ENCOUNTERS ADMIT/DISCHARGE ACCOUNT ADMITTING ENCOUNTER LOCATION SOURCE NUMBER CLASS 04/03/2018 [id number] [facility] ing:WOBLAB Repository 03/17/2018/ [id number] [address] ing:WPOUTRoom Repository : [id number] 01/11/2018/ [id number] DR MARGARITA Ambulatory [facility] 8 [facility] Repository 12/03/2017 [id number] Ambulatory [address] ing:WOBLAB Repository 11/26/2017 [id number] Ambulatory [facility] 5 [facility] ing:LABSPEC Repository 11/19/2017/ [id number] DR MARGARITA Ambulatory [facility] [place] 8 [facility] Repository 10/26/2017/ [id number] DR MARGAR[facility] 8 [facility] Repository 09/06/2017/ [id number] DR MARGARITA Ambulatory [facility] 8 [facility] Repository 07/11/2017/ [id number] DR MARGARITA Ambulatory [facility] [place] 8 [facility] Repository 06/14/2017/ [id number] Holland SALMON 8 [facility] Repository 06/13/[id number] g:H.[place] Repository 06/08/2017 [id number] Ambulatory [facility] 7 [facility] g:H.FL Repository 05/26/2017/ [id number] DR Holland [place] 8 [facility] Repository 05/10/2017/ [id number] DR Holland [place] 8 [facility] Repository PAYERS PAYERS ENCOUNTER GUARANTOR PAYER SUBSCRIBER SOURCE 04/03/2018 JEROME Primary Insurance:SELF NOT GIVENUNK [place] [id number] [facility], Date:2018-04-03 [place]ository [place] [address]Fst: (HP) 03/17/2018 JEROME Primary Insurance:SELF NOT GIVENUNK [place] [id number] [facility] CR Number: Effective Hospital [address], Date:2018-03-17 Repository [place] [address]Pvn: (HP) 12/03/2017 JEROME Primary JEROME [place] [id number] Insurance:MEDICAIDPoli MOREHOUSEDOB: [facility] cy Number: [id number] Hospital [facility], [id number] Repository [place] [address]Pcb: Date:2017-12-03 (HP) 12/03/2017 Secondary NOT GIVENUNK [place] Insurance:SELF PAY [facility] Number: Effective Repository Date:2017-12-03 11/26/2017 JEROME Primary Insurance:SELF NOT GIVENUNK [place] [id number] [facility] [facility] [address] Number: Effective Hospital [facility], Date:2017-11-26 Repository [place] [address]Rks: (HP) 09/06/2017 JEROME R Primary [place] MOREHOUSEDOB: Insurance:MORRIS MOREHOUSEB: [facility] MEDICAL RESOURCES [facility] [id number] Repository [facility], Number: [place], [place] [address]Hzr: [id number] [place] [address] Date:Plan Name:U4 () 07/11/2017 JEROME [place] CITYDOB: Insurance:[facility]: [facility] MEDICAL RESOURCES [facility] [id number] [facility] [address]PAT[address] Repository [place], Number: [place], [place] [address]Qkl: [id number] [place] [address] Date:Plan Name:U4 () 06/14/2017 JEROME R Primary REEMA [place]AY[place]OO CITYDOB: Insurance:[facility]: [facility] MEDICAL RESOURCES [facility] [id number] [facility] [address] Repository [place], Number: [place], [place] [address]Ppg: [id number] [place] [address] Date:Plan Name: () 05/26/2017 JEROME Jolly Primary [place] ACCORDDOB: Insurance:[facility]: [facility] MEDICAL RESOURCES [facility] [id number] [facility] [address] Repository [place], Number: [place], [place] [address]Rph: [id number] [place] [address] Date:Plan Name:U () 05/10/2017 JEROME [place] ACCORDDOB: [facility] MEDICAL RESOURCES [facility] [id number] [facility] [address] Repository [place], Number: [address], [place] [address]Cfc: [id number] [place] [address] Date:Plan Name:U ()
== END ==
LOC: WOBLAB 13:41
PROVIDERS: Visit Provider Obstetrics & Gynecology
DX: Z34.83 Encounter for supervision of other normal pregnancy, third trimester (principal)
CPT/HCPCS: 36415; 82950; 84443; 85027; 86850

== ENCOUNTER 2018-05-23 17:15 | Outpatient (CLI) | payer SELFPAY ==
[2018-05-23 17:37] VITALS: BMI 29.0
[2018-05-23 17:52] LABS: Bacteria 0 SEEN /hpf (None Seen); Mucous, Urine 0 SEEN /hpf (<or=2+); Red Blood Cells-Urine 0 SEEN /hpf (0-5); White Blood Cells 0 SEEN /hpf (0-5)
[2018-05-23 18:09] LABS: Color, Urine Yellow (Yellow); Glucose, Dipstick Normal (Normal); Ketone-Dipstick Negative (Negative); Leukocyte Esterase-Dipstick Negative /ul (Negative); Nitrite-Dipstick Negative (Negative); Occult Blood-Urine Negative /ul (Negative); Protein-Dipstick Negative (Negative); Urine Bilirubin Dipstick Negative (Negative); Urine Clarity Sl. Cloudy (Clear); Urine Urobilinogen Normal (Normal)
[2018-05-23 18:17] LABS: Amorphous Sediment 1+ URATE; Squamous Epithelial Cells - UA 0-5 SEEN /hpf (5-10)
--- NOTE | 2018-05-23 18:27 | OB.TRI.NOTE ---
- Problem List (1) 35 weeks gestation of Status: Acute (2) False labor Status: Acute (3) Decreased movement Status: Acute Qualifiers: Fetus number: single or unspecified fetus Trimester: third trimester Qualified Code(s): O36.8130 - Decreased movements, third trimester, not applicable or unspecified History of Present Illness Date of Service: 05/23/18 Was patient seen by the physician?: No Reason For Visit: DECREASED MOVEMENT Final CALEB: 06/24/18 Final CALEB Source: US <20 weeks Gestational age: 35 Weeks and 3 Days History of Present Illness: 27yo @ 35 3/7wga with c/o decreased movement and cramping. Allergies No Known Allergies Allergy (Verified 05/23/18 17:35) Laboratory Studies: Laboratory Tests 05/23/18 Range/Units 17:30 Urine Color Yellow (Yellow) Urine Clarity Sl. Cloudy (Clear) Urine pH 7.0 (5.0 - 8.0) Ur Specific [place] 1.010 (1.002-1.030) Urine Protein Negative (Negative) mg/dl Urine Glucose (UA) Normal (Normal) mg/dl Urine Ketones Negative (Negative) mg/dl Urine Occult Blood Negative (Negative) /ul Urine Nitrite Negative (Negative) Urine Bilirubin Negative (Negative) mg/dL Urine Urobilinogen Normal (Normal) mg/dl Ur Leukocyte Esterase Negative (Negative) /ul Urine RBC 0 SEEN (0-5) /hpf Urine WBC 0 SEEN (0-5) /hpf Ur Squamous Epith Cells 0-5 SEEN (5-10) /hpf Amorphous Sediment 1+ URATE Urine Bacteria 0 SEEN (None Seen) /hpf Urine Mucus 0 SEEN (<or=2+) /hpf Physical Exam Vitals: avss Cervix Dilation (cm): 0 - per RN exam Station: -3 Effacement (%): 0 NST - FHR Rate Baby A Baseline: 130 Variability:: Moderate Accelerations:: 15 x 15 Decelerations:: None NST Reactive:: Yes FHR Category:: Category I Uterine Activity:: 0-3/10 min Impression/Plan 27yo @ 35 3/7wga with reactive NST -Pt reported movement per RN during observation -UA not c/w UTI -GBS culture sent per patient request -d/c home with kick counts
--- OUTSIDE RECORDS SUMMARY | 2018-07-28 12:18 | XMS RPT_ITS ---
:1990 Author Organization OHIP Support Name Relationship Address Phone REEMA DUBON Unavailable [address] + [place] [address] UE Unavailable Unavailable Unavailable REEMA DUBON Unavailable [address] + [place] [address] UE Unavailable Unavailable Unavailable REEMA DUBON Unavailable [address] + [place] [address] UE Unavailable Unavailable Unavailable REEMA DUBON Unavailable [address] + [place] [address] UE Unavailable Unavailable Unavailable FORTE, WILFREDO Unavailable [address] + [place] [address] REEMA BAIN Unavailable [address] [place] [address] NOT GIVEN Unavailable Unavailable Unavailable UE Unavailable Unavailable Unavailable UE Unavailable Unavailable Unavailable FORTE, WILFREDO Unavailable [address] + [place] [address] REEMA BAIN Unavailable [address] [place] [address] NOT GIVEN Unavailable Unavailable Unavailable FORTE, WILFREDO Unavailable [address] + [place] [address] REEMA BAIN Unavailable [address] [place] [address] NOT GIVEN Unavailable Unavailable Unavailable FORTE, WILFREDO Unavailable [address] + [place] [address] REEMA BAIN Unavailable [address] [place] [address] NOT GIVEN Unavailable Unavailable Unavailable FORTE, WILFREDO Unavailable [address] + [place] [address] REEMA BAIN Unavailable [address] [place] [address] NOT GIVEN Unavailable Unavailable Unavailable FORTE, WILFREDO Unavailable [address] + [place] [address] REEMA BAIN Unavailable [address] [place] [address] NOT GIVEN Unavailable Unavailable Unavailable Care Team Providers Name Role Phone LagosNicolás Mary Attending Unavailable Mary Castellanos Referring Unavailable Pieter Manriquez Attending Unavailable Mitra, Pieter Attending Unavailable Mitra, Pieter Attending Unavailable Mitra, Pieter Attending Unavailable Charlotte Gentile Attending Unavailable Krupa, Charlotte Referring Unavailable CLINT SALMON Admitting Unavailable LUIS ANTONIO, CLINT Attending Unavailable CLINT SALMON Primary Care Unavailable MARGARITA, DR DAVIDA HARRIS Admitting Unavailable MARGARITA, DR DAVIDA HARRIS Attending Unavailable MARGARITA, DR DAVIDA HARRIS Primary Care Unavailable VACCARIELLO, PIETER Consulting Unavailable PROVIDER, UNKNOWN Consulting Unavailable PROVIDER, UNKNOWN Consulting Unavailable PROVIDER, UNKNOWN Consulting Unavailable MARGARITA, DR DAVIDA HARRIS Admitting Unavailable MARGARITA, DR DAVIAD HARRIS Attending Unavailable MARGARITA, DR DAVIDA HARRIS [...] TYPE CONDITION / CODE ATTENDING STATUS SOURCE 05/27/2018 Unknown O47.03 - False labor Jasmin, Mary [place] before 36 completed [facility] O47.03(ICD-10) 04/03/2018 Unknown Z34.83 - Encounter Pieter Manriquez Active Liliya for supervision of [facility] other normal Hospital , third Repository trimester / Z34.83(ICD-10) 12/03/2017 Unknown Z34.81 - Encounter Pieter Manriquez for supervision of [facility] other normal Hospital , first Repository trimester / Z34.81(ICD-10) 12/14/2017 Unknown Z12.4 - Encounter Pieter Manriquez for screening for [facility] malignant neoplasm Hospital of cervix / Repository Z12.4(ICD-10) 11/19/[address] Mary AVILA Diagnosis diffuse goiter DAVIDA HARRIS [facility] without thyrotoxic Hospital crisis or storm / Repository E0500(ICD-10) 11/19/[address] Mary AVILA Diagnosis diffuse goiter DAVIDA HARRIS [facility] without thyrotoxic Hospital crisis or storm / Repository E0500(ICD-10) 06/08/2017 Admitting Unknown / Mary Penaloza Medical diagnosis UNK(Unknown) Clint [facility] Repository PROCEDURES PROCEDURES No Procedure Records FoundRESULTS RESULTS URINALYSIS, COMPLETE Collected: 06/01/2018 Status: F Source: [place] 3:00 AM [facility] REPOSITORY Order Comment: How was Urine Obtained? CLEAN CATCH TYPE CODE TESTS RESULT OUT OF RANGE REFERENCE UNITS LAB L400.3000 Yellow COLOR Normal Yellow LAB L400.3050 Clear Normal CLARITY Sl. Cloudy LAB L400.3200 Normal mg/dl Normal GLUCOSE, UR Normal LAB L400.3300 Negative mg/dL Normal BILIRUBIN URINE Negative LAB L400.3400 Negative mg/dl Normal KETONE UR Negative LAB L400.3465 1.002-1.030 Normal SP.GR. DIPSTX 1.010 LAB L400.3550 5.0 - 8.0 pH UR Normal 7.0 LAB L400.3600 Negative mg/dl PROT Normal DIPSTX Negative LAB L400.3700 Normal mg/dl Normal UROBILI Normal LAB L400.3750 Negative Normal NITRITE UR Negative LAB L400.3780 Negative /ul Normal OCCULT BLOOD-UR Negative LAB L400.3800 Negative /ul High LEUK 25 ESTERASE LAB L400.4050 0-5 /hpf WBC Normal 0-5 SEEN LAB L400.4100 0-5 /hpf 0 Normal RBC-UA SEEN LAB L400.4150 5-10 /hpf SQUAM Normal EPI 0-5 SEEN LAB L400.4300 None Seen /hpf 0 Normal BACTERIA SEEN LAB L400.4350 <or=2+ /hpf 0 Normal MUCUS, URINE SEEN Performed By: #### L400.0001 #### [facility] [address] [place], [place], [address] (ROM) RUPTURE OF Collected: 06/01/2018 Status: F Source: [place] MEMBRANES 1:25 AM [facility] REPOSITORY TYPE CODE TESTS RESULT OUT OF RANGE REFERENCE UNITS LAB L205.1310 Negative Normal ROM Negative Result Comment: Amniotic fluid not present indicates No Rupture of Membranes at time of specimen collection. Performed By: #### L205.1000 #### [facility] [address] [place], [place], [address] Observed: 05/23/2018 Status: F Source: [place] CULTURE, GROUP B 6:09 PM [facility] STREPTOCOCCUS REPOSITORY Has pt arrived? Y RENETTA Culture ORGANISM 1: Streptococcus agalactiae (B) Amount Growth Growth Streptococcus agalactiae (B): REACTION Ampicillin $ <=0.25 S Benzylpenicillin NF <=0.06 S Ceftriaxone (other dx) $ <=0.12 S Clindamycin $$ R Inducable Clindamycin Resistan POS Linezolid $$$$ <=2 S Vancomycin $ 0.5 S (NF) indicates non-formulary drug at [facility]. Approval by Infectious Disease Specialist required before non-formulary drugs may be ordered and/or dispensed. * CLSI guidelines does not recommend testing of cephalosporins. This interpretation is deduced from Beta-lactam/penicillin results. Performed By: #### M100.1800 #### [facility] [address] [place], [place], [address] URINALYSIS, COMPLETE Collected: 05/23/2018 Status: F Source: [place] 5:30 PM [facility] REPOSITORY Order Comment: How was Urine Obtained? DISCHARGE DOOR OPERATOR TO SPECIFY TYPE CODE TESTS RESULT OUT OF RANGE REFERENCE UNITS LAB L400.3000 Yellow COLOR Normal Yellow LAB L400.3050 Clear Normal CLARITY Sl. Cloudy LAB L400.3200 Normal mg/dl Normal GLUCOSE, UR Normal LAB L400.3300 Negative mg/dL Normal BILIRUBIN URINE Negative LAB L400.3400 Negative mg/dl Normal KETONE UR Negative LAB L400.3465 1.002-1.030 Normal SP.GR. DIPSTX 1.010 LAB L400.3550 5.0 - 8.0 pH UR Normal 7.0 LAB L400.3600 Negative mg/dl PROT Normal DIPSTX Negative LAB L400.3700 Normal mg/dl Normal UROBILI Normal LAB L400.3750 Negative Normal NITRITE UR Negative LAB L400.3780 Negative /ul Normal OCCULT BLOOD-UR Negative LAB L400.3800 Negative /ul LEUK Normal ESTERASE Negative LAB L400.4050 0-5 /hpf WBC 0 Normal SEEN LAB L400.4100 0-5 /hpf 0 Normal RBC-UA SEEN LAB L400.4150 5-10 /hpf SQUAM Normal EPI 0-5 SEEN LAB L400.4300 None Seen /hpf 0 Normal BACTERIA SEEN LAB L400.4350 <or=2+ /hpf 0 Normal MUCUS, URINE SEEN LAB L400.4900 1+ Normal AMORPHOUS URATE Performed By: #### L400.0001 #### [facility] [address] [facility] [place], [place], [address] CBC-COMPLETE BLOOD CNT Collected: 04/03/2018 Status: F Source: [place] NO DIFF 1:45 PM [facility] REPOSITORY TYPE CODE TESTS RESULT OUT OF [...] MPV 10.3 Performed By: #### L100.0500 #### [facility] [address] [facility] [place], [address] GLUCOSE CHALLENGE GEST Collected: 04/03/2018 Status: F Source: [place] 1H 50G 1:45 PM [facility] REPOSITORY Order Comment: ADD TO GLUCH TUBE TYPE CODE TESTS RESULT OUT OF RANGE REFERENCE UNITS LAB L501.0250 70-140 mg/dL Normal GLU GEST 111 50g 1H Performed By: #### L501.0250, L501.9520 #### [facility] [address] [facility], [address] THYROID STIM HORMONE Collected: 04/03/2018 Status: F Source: [place] (TSH) 1:45 PM [facility] REPOSITORY Order Comment: ADD TO GLUCH TUBE TYPE CODE TESTS RESULT OUT OF RANGE REFERENCE UNITS LAB L501.9520 0.358-3.74 uIU/mL Normal TSH 0.45 Performed By: #### L501.0250, L501.9520 #### [facility] [address] [place] [address]. [place], [address] ANTIBODY SCREEN Collected: 04/03/2018 Status: F Source: [place] 1:45 PM [facility] REPOSITORY TYPE CODE TESTS RESULT OUT OF RANGE REFERENCE UNITS LAB B100.4000 Normal Antibody NEGATIVE Screen Performed By: #### B100.4000 #### [facility] [address] [facility] [place], [address] URINALYSIS, ROUTINE Collected: 03/17/2018 Status: F Source: [place] (DIPSTICK) 10:55 AM [facility] REPOSITORY Order Comment: How was Urine Obtained? DISCHARGE DOOR OPERATOR TO SPECIFY TYPE CODE TESTS RESULT OUT [...] High LEUK ESTERASE 100 Performed By: #### L400.2010 #### [facility] [address] [place], [place], [address] Observed: 03/17/2018 Status: F Source: [place] CULTURE, URINE 10:55 AM [facility] REPOSITORY Urine Culture Below infection level. ORGANISM 1: Mixed Gram Positive Organisms [place] Count 1000-10,000 Performed By: #### M100.0650 #### [facility] [address] [place], [address] TSH Collected: 01/11/2018 Status: F Source: [facility] 2:27 PM [facility] REPOSITORY TYPE CODE TESTS RESULT OUT OF RANGE REFERENCE UNITS LAB TSH(LOINC) 0.34 - 5.60 uIU/ml TSH 0.55 Performed By: #### [id number] #### [facility],[address] [place] [address] T4-FREE (FREE Collected: 01/11/2018 Status: F Source: [facility] THYROXINE) 2:27 PM [facility] REPOSITORY TYPE CODE TESTS RESULT OUT OF RANGE REFERENCE UNITS LAB T4 0.61 - 1.12 ng/dl FREE(LOINC) T4 FREE 0.80 Result Comment: *SPECIMENS FROM PATIENTS WHO ARE UNDERGOING BIOTIN THERAPY AND/OR INGESTING BIOTIN SUPPLEMENTS MAY HAVE FALSE HIGH RESULTS. Performed By: #### [id number] #### [facility],[address] [place] [address] T3, FREE Collected: 01/11/2018 Status: F Source: [facility] 2:27 PM [facility] REPOSITORY TYPE CODE TESTS RESULT OUT OF RANGE REFERENCE UNITS LAB T3, FREE(LOINC) T3, FREE Result Comment: _T3, FREE_ T3, FREE Reported: 01/14/2018 07:20 Status=F TEST RESULT FLAG RANGE UNITS T3, FREE 2.6 2.3-4.2 pg/mL 01/14/18.0734.rfl.COMPLETE.AMRR .3051-0 Test Performed by [facility], [employer] [facility], [address] [place] [address] Karthik Gonzales M.D., Ph.D., Director of Laboratories , [facility] [id number] Performed By: #### [id number] #### [facility],[address] [place] [address] URINE DRUG SCREEN Collected: 12/03/2017 Status: F [facility] [place] [facility] PM [facility] REPOSITORY Order Comment: List of Drugs Taken [...] NEGATIVE Performed By: #### L505.5000, L505.6240 #### [facility] [address] [facility] [place], [place], [address] NICOTINE URINE DRUG Collected: 12/03/2017 Status: F Source: [place] SCREEN 1:50 PM [facility] REPOSITORY Order Comment: List of Drugs Taken [...] Nicotine. Performed By: #### L505.5000, L505.6240 #### [facility] [address] [facility] [place], [place], [address] CBC W/DIFF, AUTOMATED Collected: 12/03/2017 Status: F Source: [place] 1:50 PM [facility] REPOSITORY TYPE CODE TESTS RESULT OUT OF [...] Lymph 2.38 Performed By: #### L100.0100 #### [facility] [address] [place], [address] URINALYSIS, ROUTINE Collected: 12/03/2017 Status: F Source: [place] (DIPSTICK) 1:50 PM [facility] REPOSITORY Order Comment: How was Urine Obtained? [...] ESTERASE Negative Performed By: #### L400.2010 #### [facility] [address] [place], [place], [id number] THYROID STIM HORMONE Collected: 12/03/2017 Status: F Source: [place] (TSH) 1:50 PM [facility] REPOSITORY TYPE CODE TESTS RESULT OUT OF RANGE REFERENCE UNITS LAB L501.9520 0.358-3.74 uIU/mL Low TSH 0.05 Performed By: #### L501.9520 #### [facility] [place], [address] RUBELLA IGG Collected: 12/03/2017 Status: F Source: [place] 1:50 PM [facility] REPOSITORY TYPE CODE TESTS RESULT OUT OF RANGE REFERENCE UNITS LAB L509.4000 IU/mL Normal Rubella IgG 227.9 Result Comment: Antibody results Interpretation of Immune Status < 5 IU/ml Presumed Non-immune 5 - < 10 IU/ml Equivocal > or = 10 IU/ml Presumed Immune Performed By: #### L509.4000, L3890.6005 #### [facility] [address] [place], [place], [id number] HIV - [facility] Collected: 12/03/2017 Status: F Source: [place] 1:50 PM [facility] REPOSITORY TYPE CODE TESTS RESULT OUT OF RANGE REFERENCE UNITS LAB L3890.6005 Nonreactive Normal HIV - [facility] Non-Reactive Performed By: #### L509.4000, L3890.6005 #### [facility] [address] [facility] [id number] T AND S-NO Collected: 12/03/2017 Status: F Source: [place] CHARGE W/PNP 1:50 PM [facility] REPOSITORY Order Comment: Reason for Type AND Screen/Red Cells: Surgery? N TYPE CODE TESTS RESULT OUT OF RANGE REFERENCE UNITS LAB B10.0800 A Normal BLOOD NEGATIVE TYPE GEL LAB B100.4050 Normal Ab SCREEN NEGATIVE GEL Performed By: #### B100.7550 #### [facility] [address] [place], [address] HEPATITIS B SURFACE Collected: 12/03/2017 Status: F Source: [place] AG 1:50 PM [facility] REPOSITORY TYPE CODE TESTS RESULT OUT OF RANGE REFERENCE UNITS LAB L3100.0400 Negative Normal HB Negative SURF AG Result Comment: Performed at: [facility] [id number] Cabinetmaker Apprentice: Dean Lloyd PhD, Phone: [phone] Performed By: #### L3100.0390, L3100.0625 #### [facility] (refer to report for specific site) refer to report for address and phone number HEPATITIS C ANTIBODIES Collected: 12/03/2017 Status: F Source: [place] 1:50 PM [facility] REPOSITORY TYPE CODE TESTS RESULT OUT OF RANGE REFERENCE UNITS LAB L3100.0650 0.0-0.9 s/co ratio Normal HEP C AB 0.1 Result Comment: Negative: < 0.8 Indeterminate: 0.8 - 0.9 Positive: > 0.9 The CDC recommends that a positive HCV antibody result be followed up with a HCV Nucleic Acid Amplification test (318019). Performed By: #### L3100.0390, L3100.0625 #### [facility] (refer to report for specific site) refer to report for address and phone number RPR Collected: 12/03/2017 Status: F Source: [place] 1:50 PM [facility] REPOSITORY TYPE CODE TESTS RESULT OUT OF REFERENCE UNITS RANGE LAB L700.5100 NONREACTIVE Normal RPR NONREACTIVE Performed By: #### L700.5100 #### [facility] [address] [facility]. [place], [place], [address] CT/NG [facility] BY PCR Collected: 11/26/2017 Status: F Source: [place] 2:00 PM [facility] REPOSITORY TYPE CODE TESTS RESULT OUT OF RANGE REFERENCE UNITS LAB L8200.2100 Negative Normal Chlam Negative Trac PCR LAB L8200.2200 Negative Normal NG by Negative PCR Performed By: #### L8200.2000 #### [facility] [place], [address] T4-FREE (FREE Collected: 11/19/2017 Status: F Source: MIKEY HAZARD THYROXINE) 7:20 PM [facility] REPOSITORY TYPE CODE TESTS RESULT OUT OF RANGE REFERENCE UNITS LAB T4 0.61 - 1.12 ng/dl FREE(LOINC) T4 FREE 0.74 Result Comment: *SPECIMENS FROM PATIENTS WHO ARE UNDERGOING BIOTIN THERAPY AND/OR INGESTING BIOTIN SUPPLEMENTS MAY HAVE FALSE HIGH RESULTS. Performed By: #### [id number] #### [facility],[address] [place] [address] TSH Collected: 11/19/2017 Status: F Source: [facility] 7:20 PM [facility] REPOSITORY TYPE CODE TESTS RESULT OUT OF RANGE REFERENCE UNITS LAB TSH(LOINC) 0.34 - 5.60 uIU/ml Low TSH 0.09 Performed By: #### [id number] #### [facility],[address] [place] [address] T3, FREE Collected: 11/19/2017 Status: F Source: [facility] 7:20 [facility] REPOSITORY TYPE CODE TESTS RESULT OUT OF RANGE REFERENCE UNITS LAB T3, FREE(LOINC) T3, FREE Result Comment: _T3, FREE_ T3, FREE Reported: 11/22/2017 13:04 Status=F TEST RESULT FLAG RANGE UNITS T3, FREE 2.8 2.3-4.2 pg/mL 11/22/17.1316.rfl.COMPLETE.AMRR .3051-0 Test Performed by [facility], [employer] [facility], [address] [place] [address] Karthik Gonzales M.D., Ph.D., Director of Laboratories , [place] [id number] Performed By: #### [id number] #### [facility],[address] [place], [place] [address] T4-FREE (FREE Collected: 10/26/2017 Status: F Source: [facility] THYROXINE) 3:10 PM [facility] REPOSITORY TYPE CODE TESTS RESULT OUT OF RANGE REFERENCE UNITS LAB T4 0.61 - 1.12 ng/dl FREE(LOINC) T4 FREE 0.82 Result Comment: *SPECIMENS FROM PATIENTS WHO ARE UNDERGOING BIOTIN THERAPY AND/OR INGESTING BIOTIN SUPPLEMENTS MAY HAVE FALSE HIGH RESULTS. Performed By: #### [id number] #### [place] [id number] TSH Collected: 10/26/2017 Status: F Source: [facility] 3:10 PM [facility] REPOSITORY TYPE CODE TESTS RESULT OUT OF RANGE REFERENCE UNITS LAB TSH(LOINC) 0.34 - 5.60 uIU/ml Low TSH 0.02 Performed By: #### [id number] #### [place] [id number] T3, FREE Collected: 10/26/2017 Status: F Source: [facility] 3:10 PM [facility] REPOSITORY TYPE CODE TESTS RESULT OUT OF RANGE REFERENCE UNITS LAB T3, FREE(LOINC) T3, FREE Result Comment: _T3, FREE_ T3, FREE Reported: 10/30/2017 13:44 Status=F TEST RESULT FLAG RANGE UNITS T3, FREE 3.3 2.3-4.2 pg/mL 10/30/17.1355.Neelam.AMRR .3051-0 Test Performed by [facility], [employer] [facility], [address] [place] [address] Karthik Gonzales M.D., Ph.D., Director of Laboratories , [facility] [id number] Performed By: #### [id number] #### [facility],[address] [place], [place] [address] T4-FREE (FREE Collected: 09/06/2017 Status: F Source: [facility] THYROXINE) 1:30 PM [facility] REPOSITORY TYPE CODE TESTS RESULT OUT OF RANGE REFERENCE UNITS LAB T4 0.61 - 1.12 ng/dl FREE(LOINC) T4 FREE 0.80 Result Comment: *SPECIMENS FROM PATIENTS WHO ARE UNDERGOING BIOTIN THERAPY AND/OR INGESTING BIOTIN SUPPLEMENTS MAY HAVE FALSE HIGH RESULTS. Performed By: #### [id number] #### [facility],[address] [place], [place] [address] T3, FREE Collected: 09/06/2017 Status: F Source: [facility] 1:30 PM [facility] REPOSITORY TYPE CODE TESTS RESULT OUT OF RANGE REFERENCE UNITS LAB T3, FREE(LOINC) T3, FREE Result Comment: _T3, FREE_ T3, FREE Reported: 09/13/2017 07:21 Status=F TEST RESULT FLAG RANGE UNITS T3, FREE 3.5 2.3-4.2 pg/mL 09/13/17.0733.rfl.COMPLETE.AMRR .3051-0 Test Performed by [facility], [employer] [facility], [address] [place] [address] Karthik Gonzales M.D., Ph.D., Director of Laboratories , CLIA [id number] Performed By: #### [id number] #### [facility],[address] [place], [place] [address] TSH Collected: 09/06/2017 Status: F Source: [place] HORAN 1:30 PM [facility] REPOSITORY TYPE CODE TESTS RESULT OUT OF RANGE REFERENCE UNITS LAB TSH(LOINC) 0.34 - 5.60 uIU/ml Low TSH 0.01 Performed By: #### [id number] #### [place] [address] CMP WITH EGFR Collected: 07/11/2017 Status: F Source: [place] REYESNEMO 11:03 AM [facility] REPOSITORY TYPE CODE TESTS RESULT OUT [...] OF AGE AND OLDER. Performed By: #### [id number] #### [place] [address] TSH Collected: 07/11/2017 Status: F Source: [facility] 11:03 [facility] REPOSITORY TYPE CODE TESTS RESULT OUT OF RANGE REFERENCE UNITS LAB TSH(LOINC) 0.34 - 5.60 uIU/ml Low TSH 0.10 Performed By: #### [id number] #### [place] [address] T4-FREE (FREE Collected: 07/11/2017 Status: F Source: [facility] THYROXINE) 11:03 [facility] REPOSITORY TYPE CODE TESTS RESULT OUT OF RANGE REFERENCE UNITS LAB T4 0.61 - 1.12 ng/dl FREE(LOINC) T4 FREE 0.75 Result Comment: *SPECIMENS FROM PATIENTS WHO ARE UNDERGOING BIOTIN THERAPY AND/OR INGESTING BIOTIN SUPPLEMENTS MAY HAVE FALSE HIGH RESULTS. Performed By: #### [id number] #### [address] [address] VITAMIN D, 25 Collected: 07/11/2017 Status: F Source: [facility] 11:03 [facility] REPOSITORY TYPE CODE TESTS RESULT OUT [...] 25-OH D2 Not Established Performed By: #### [id number] #### [address] [address] T3, FREE Collected: 07/11/2017 Status: F Source: [facility] HAZARD 11:03 [facility] REPOSITORY TYPE CODE TESTS RESULT OUT OF RANGE REFERENCE UNITS LAB T3, FREE(LOINC) T3, FREE Result Comment: _T3, FREE_ T3, FREE Reported: 07/13/2017 08:11 Status=F TEST RESULT FLAG RANGE UNITS T3, FREE 3.3 2.3-4.2 pg/mL 07/13/17.0823.rfl.COMPLETE.AMRR .3051-0 Test Performed by [facility], [employer] [facility], [address] [place] [address] Krathik Gonzales M.D., Ph.D., Director of Laboratories , [place] [id number] Performed By: #### [id number] #### [place] [address] MODIFIED BARIUM Observed: 06/14/2017 Status: F Source: MIKEY POMNICOLÁSNE SWALLOW 1:46 PM [place] [address] Patient: JEROME BAIN Phone#: : 1990 Age: 26 Gender: F Pt. Type: Out Account: [id number] Location: [facility] Ordering: CLINT SALMON Exam Date: 06/14/2017/13:04 Family Phys: Charge Code: [id number] Physician: Alcorn Order #: [id number] DLP Dose#: PROCEDURE: CINERADIOGRAPHY MODIFIED BARIUM SWALLOW [...] Tabatha Monroe MD on 06/14/2017 at 14:01 ALLERGIES ALLERGIES DATE TYPE / CODE NAME / CODE REACTION SEVERITY SOURCE 06/01/2018 Drug No Known Unknown [place] Allergy/[id number](S Allergies/F0019 [facility] NOMED CT) [address](RXNORM) Hospital Repository Miscellaneous No Known Moderate Mikey [place]nem[place] Allergy/[id number](S Allergies ([facility]OM[facility]) Modifier) Hospital (Qualifier Repository Value) ENCOUNTERS ENCOUNTERS ADMIT/DISCHARGE ACCOUNT ADMITTING ENCOUNTER LOCATION SOURCE NUMBER CLASS 06/01/2018/ [id number] Ambulatory Liliya [place] 9 4 [facility] ing:WPOUTRoom Repository : [id number] 05/23/2018/ [id number] Ambulatory [place] Liliya 9 2 [facility] ing:WPOUTRoom Repository : [id number] 04/03/2018 [id number] Ambulatory Liliya [place] 4 [facility] ing:WOBLAB Repository 03/17/2018/ [id number] Ambulatory Liliya [place] 8 2 [facility] ing:WPOUTRoom Repository : [id number] 01/11/2018/ [id number] DR Holland AVILA 8 [facility] Repository 12/03/2017 [id number] Ambulatory Liliya [place] 4 [facility] ing:WOBLAB Repository 11/26/2017 [id number] Ambulatory Liliya [place] 5 [facility] ing:LABSPEC Repository 11/19/2017/ [id number] DR Holland AVILA 8 [facility] Repository 10/26/2017/ [id number] DR Holland AVILA 8 [facility] Repository 09/06/2017/ [id number] DR Holland AVILA 8 [facility] Repository 07/11/2017/ [id number] DR Holland AVILA 8 [facility] Repository 06/14/2017/ [id number] Holland SALMON 8 [facility] Repository 06/13/2017 [id number] Ambulatory [facility] 6 [facility] g:[place] Repository 06/08/2017 [id number] Ambulatory [facility] g:[place] Repository PAYERS PAYERS ENCOUNTER GUARANTOR PAYER SUBSCRIBER SOURCE 06/01/2018 JEROME Primary REEMA Lovell [id number] Insurance:ANTHEMPolicy MOREHOUSEDOB: Community CR Number: [id number] Hospital [address], [id number] [place]ository [place] [address]Lpx: Date:[id number], [place] () [address]CV: 06/01/2018 Secondary NOT GIVENUNK Liliya Insurance:SELF PAY [facility]: Effective Repository Date:2018-06-01 05/23/2018 JEROME Primary Insurance:SELF NOT GIVENUNK [place] [id number] [facility]Y [facility]: Effective Hospital [address] [place] [address], Date:2018-05-23 Repository [place] [address]Upl: () 04/03/2018 JEROME Primary Insurance:SELF NOT GIVENUNK Liliya [id number] [facility] Number: Effective Hospital [address] [place] [address], Date:2018-04-03 Repository [place] [address]Sya: () 03/17/2018 JEROME Primary Insurance:SELF NOT GIVENUNK Liliya [id number] [facility]Y [facility] Number: Effective Hospital [address] [place] [address], Date:2018-03-17 Repository [place] [address]Waa: () 12/03/2017 JEROME Primary JEROME Lovell [id number] Insurance:MEDICAIDPoli MOREHOUSEDOB: [facility] cy Number: [id number] Hospital [address] [place] [address], [id number] [place]ository [place] [address]Ijf: Date:2017-12-03 () 12/03/2017 Secondary NOT GIVENUNK Liliya Insurance:SELF PAY [facility] Number: Effective Repository Date:2017-12-03 11/26/2017 JEROME Primary Insurance:SELF NOT GIVENUNK [place] [id number] [facility] [address] Number: Effective Hospital [address] [place] [address], Date:2017-11-26 [place]ository [place] [address]Zlz: () 09/06/2017 JEROME Jolly [facility]: [facility] [id number] MEDICAL RESOURCES [facility] [id number] [facility] [address]PAT[address] Repository [address], Number: [address], [place] [address]Obj: [id number] [place] [address] Date:Plan Name:U4 () 07/11/2017 JEROME R Primary [facility]EMA [facility]: [facility] MEDICAL RESOURCES [facility] [id number] [facility] [address]PAT[address] Repository [address], Number: [address], [place] [address]Vio: [id number] [place] [address] Date:Plan Name:U4 () 06/14/2017 JEROME R Primary [facility]EMA Horan [facility]: [facility] MEDICAL RESOURCES [facility] [id number] [facility] [address]PAT[address] Repository [address], Number: [address], [place] [address]Enf: [id number] [place] [id number] Date:Plan Name:U4 ()
== END 2018-05-23 18:44 | disposition home or self-care (01) ==
LOC: WPOUT 17:21 → WP 17:21
PROVIDERS: Referring Provider Obstetrics & Gynecology; Visit Provider Obstetrics & Gynecology
DX: O47.03 False labor before 37 completed weeks of gestation, third trimester (principal); O36.8130 Decreased fetal movements, third trimester, not applicable or unspecified; Z3A.35 35 weeks gestation of pregnancy
CPT/HCPCS: 59025; 81001; 87077; 87081; 87186; 99218; G0378

== ENCOUNTER 2018-06-01 01:05 | Outpatient (CLI) | payer BC, SELFPAY ==
[2018-06-01 01:30] VITALS: BMI 29.3
[2018-06-01 02:05] LABS: ROM Internal Control Test YES-OK TO RESULT pt. (Internal QC); ROM Patient Test Negative (Negative)
[2018-06-01] MEDS: Acetaminophen 650 MG/20 ML UDC 1000 MG PO (03:06)
[2018-06-01 03:08] LABS: Bacteria 0 SEEN /hpf (None Seen); Mucous, Urine 0 SEEN /hpf (<or=2+); Red Blood Cells-Urine 0 SEEN /hpf (0-5)
[2018-06-01 03:09] LABS: Color, Urine Yellow (Yellow); Glucose, Dipstick Normal (Normal); Ketone-Dipstick Negative (Negative); Leukocyte Esterase-Dipstick 25 /ul (Negative); Nitrite-Dipstick Negative (Negative); Occult Blood-Urine Negative /ul (Negative); Protein-Dipstick Negative (Negative); Urine Bilirubin Dipstick Negative (Negative); Urine Clarity Sl. Cloudy (Clear); Urine Urobilinogen Normal (Normal)
[2018-06-01 03:18] LABS: Squamous Epithelial Cells - UA 0-5 SEEN /hpf (5-10); White Blood Cells 0-5 SEEN /hpf (0-5)
--- NOTE | 2018-06-02 08:03 | OB.TRI.HP_ITS ---
History of Present Illness Reason For Visit: R/O SROM Date of Service: 06/01/18 Final CALEB: 06/24/18 Final CALEB Source: US <20 weeks Gestational age: 36 Weeks and 5 Days History of Present Illness: 27 yo H2V3YE4 female at 36 5/7 wk with ? srom presents for labor check. States gushes of fluids intermittently throughout the day on 05/31/18. + irregular UCs. Prior deliveries at term --39 and 49 wk deliveries Cervix check no change from office exam. Allergies No Known Allergies Allergy (Verified 06/01/18 01:28) Laboratory Studies: Laboratory Tests 06/01/18 06/01/18 Range/Units 03:00 01:25 Urine Color Yellow (Yellow) Urine Clarity Sl. Cloudy (Clear) Urine pH 7.0 (5.0 - 8.0) Ur Specific [place] 1.010 (1.002-1.030) Urine Protein Negative (Negative) mg/dl Urine Glucose (UA) Normal (Normal) mg/dl Urine Ketones Negative (Negative) mg/dl Urine Occult Blood Negative (Negative) /ul Urine Nitrite Negative (Negative) Urine Bilirubin Negative (Negative) mg/dL Urine Urobilinogen Normal (Normal) mg/dl Ur Leukocyte Esterase 25 H (Negative) /ul Urine RBC 0 SEEN (0-5) /hpf Urine WBC 0-5 SEEN (0-5) /hpf Ur Squamous Epith Cells 0-5 SEEN (5-10) /hpf Urine Bacteria 0 SEEN (None Seen) /hpf Urine Mucus 0 SEEN (<or=2+) /hpf Vag Amniotic Fld Detect Negative (Negative) NST - FHR Rate Baby A Baseline: 110-120 with min to avg variability. Accels to 150s Variability:: Minimal, Moderate Accelerations:: 15 x 15 Decelerations:: None - intermittent tracing noted NST Reactive:: Yes, Appropriate for gestational age FHR Category:: Category I Uterine Activity:: no regular UCs. Impression/Plan 36 5/7 wk ? SROM FALSE LABOR, ROM test NEGATIVE, no rupture of membranes Reactive NST Home. Keep next ofc appt as scheduled. Return to hospital if increased s/sx of labor.
== END 2018-06-01 04:10 | disposition home or self-care (01) ==
LOC: WPOUT 01:14 → OBT 01:15
PROVIDERS: Referring Provider Obstetrics & Gynecology; Visit Provider Obstetrics & Gynecology
DX: O47.03 False labor before 37 completed weeks of gestation, third trimester (principal); Z3A.36 36 weeks gestation of pregnancy
CPT/HCPCS: 59025; 59050; 81001; 84112; 99218; G0378

== ENCOUNTER 2018-06-07 00:55 | Outpatient (CLI) | payer BC, SELFPAY ==
[2018-06-07 01:25] VITALS: BMI 29.3
[2018-06-07] MEDS: Lactated Ringers 1,000 ML 50 ML IV (01:51)
[2018-06-07 02:13] LABS: Hematocrit 30.3 % (37-47); Hemoglobin 10.6 g/dl (12.0-15.0); Mean Corpuscular Volume 85.8 fL (81-99); Mean Platelet Vol. 10.1 fl (6.2-12.0); Platelet Count 200 K/mm3 (150-450); RBC Distribution Width CV 12.3 % (11.6-14.6); RBC Distribution Width SD 36.7 fl (35.1-43.9); Red Blood Count 3.53 M/mm3 (4.2-5.4); White Blood Count 10.6 K/mm3 (4.4-11.0)
[2018-06-07 02:15] LABS: Scan Indicated on CBC? Y/N NO
--- NOTE | 2018-06-07 06:02 | OB.TRI.NOTE ---
- Problem List (1) 37 weeks gestation of Status: Acute (2) False labor Status: Acute History of Present Illness Date of Service: 06/07/18 Was patient seen by the physician?: Yes Reason For Visit: LABOR Date of Service: 06/07/18 Final CALEB: 06/24/18 Final CALEB Source: US <20 weeks Gestational age: 37 Weeks and 4 Days History of Present Illness: 27yo @ 37 4/7wga with c/o contractions. No LOF, VB. +FM. Allergies No Known Allergies Allergy (Verified 06/01/18 01:28) - Pertinent Past Medical History Medical History: Past Medical History (Last Updated 06/07/18 @ 06:07 by Mary Castellanos MD) Graves' disease in remission Laboratory Studies: Laboratory Tests 06/07/18 06/07/18 Range/Units 01:50 01:50 WBC 10.6 (4.4-11.0) K/mm3 RBC 3.53 L (4.2-5.4) M/mm3 Hgb 10.6 L (12.0-15.0) g/dl Hct 30.3 L (37-47) % MCV 85.8 (81-99) fL MCH 30.0 (27.0-32.0) pg MCHC 35.0 (32-36) g/gl RDW 12.3 (11.6-14.6) % RDW Differential 36.7 (35.1-43.9) fl Plt Count 200 (150-450) K/mm3 MPV 10.1 (6.2-12.0) fl Blood Type A NEGATIVE Antibody Screen NEGATIVE Physical Exam Vitals: AVSS General: Alert, Oriented x3, Cooperative, No apparent distress HEENT: Atraumatic, Normocephalic Lungs: Normal air movement Abdomen: Soft, Non Tender, Non-Distended, Gravid Neurological: Neuro grossly intact PATIENT FLOW COORDINATOR: Normal external genitalia Estimated gestational size: Appropriate for gestational size Cervix Dilation (cm): 1.5 Station: -3 Effacement (%): 60 NST - FHR Rate Baby A Baseline: 130 Variability:: Moderate Accelerations:: 15 x 15 Decelerations:: None NST Reactive:: Yes FHR Category:: Category I Uterine Activity:: 05/16 Impression/Plan 27yo @ 37 4/7wga with false labor, Cat I FHR -Initial RN exam pt -->/-2. Pt initially admitted and given single dose PCN for GBS positivity and hx precipitous labor. However contractions abated with IV hydration and on my subsequent exam cervix very posterior, moderate, 1.5/60/-3. -Reviewed with pt and family IOL indications, does not meet - advised d/c home. Pt agreeable. -Labor, FM precautions reviewed -f/u in office next week as scheduled Code Visit Office Visits / Consults: [id number] OV L3 New
--- NOTE | 2018-06-07 06:07 | OB.TRI.HP_ITS ---
- Problem List (1) 37 weeks gestation of Status: Acute (2) False labor Status: Acute History of Present Illness Date of Service: 06/07/18 Was patient seen by the physician?: Yes Reason For Visit: LABOR Date of Service: 06/07/18 Final CALEB: 06/24/18 Final CALEB Source: US <20 weeks Gestational age: 37 Weeks and 4 Days History of Present Illness: 27yo @ 37 4/7wga with c/o contractions. No LOF, VB. +FM. Allergies No Known Allergies Allergy (Verified 06/01/18 01:28) - Pertinent Past Medical History Medical History: Past Medical History (Last Updated 06/07/18 @ 06:07 by Mary Castellanos MD) Graves' disease in remission Laboratory Studies: Laboratory Tests 06/07/18 06/07/18 Range/Units 01:50 01:50 WBC 10.6 (4.4-11.0) K/mm3 RBC 3.53 L (4.2-5.4) M/mm3 Hgb 10.6 L (12.0-15.0) g/dl Hct 30.3 L (37-47) % MCV 85.8 (81-99) fL MCH 30.0 (27.0-32.0) pg MCHC 35.0 (32-36) g/gl RDW 12.3 (11.6-14.6) % RDW Differential 36.7 (35.1-43.9) fl Plt Count 200 (150-450) K/mm3 MPV 10.1 (6.2-12.0) fl Blood Type A NEGATIVE Antibody Screen NEGATIVE Physical Exam Vitals: AVSS General: Alert, Oriented x3, Cooperative, No apparent distress HEENT: Atraumatic, Normocephalic Lungs: Normal air movement Abdomen: Soft, Non Tender, Non-Distended, Gravid Neurological: Neuro grossly intact ROLL SKINNER: Normal external genitalia Estimated gestational size: Appropriate for gestational size Cervix Dilation (cm): 1.5 Station: -3 Effacement (%): 60 NST - FHR Rate Baby A Baseline: 130 Variability:: Moderate Accelerations:: 15 x 15 Decelerations:: None NST Reactive:: Yes FHR Category:: Category I Uterine Activity:: 05/16 Impression/Plan 27yo @ 37 4/7wga with false labor, Cat I FHR -Initial RN exam pt -->/-2. Pt initially admitted and given single dose PCN for GBS positivity and hx precipitous labor. However contractions abated with IV hydration and on my subsequent exam cervix very posterior, moderate, 1.5/60/-3. -Reviewed with pt and family IOL indications, does not meet - advised d/c home. Pt agreeable. -Labor, FM precautions reviewed -f/u in office next week as scheduled Code Visit Office Visits / Consults: [id number] OV L3 New
[2018-06-07 06:08] VITALS: TEMP 37.3
== END 2018-06-07 06:30 | disposition home or self-care (01) ==
LOC: WPOUT 06-10 09:02 → WP 06-11 08:02
PROVIDERS: Visit Provider Obstetrics & Gynecology
DX: O47.1 False labor at or after 37 completed weeks of gestation (principal); Z3A.37 37 weeks gestation of pregnancy
CPT/HCPCS: 96374; 59025; 59050; 85027; 86850; 86900; 86901; 96372; 99218; J7120; G0378

== ENCOUNTER 2018-06-17 22:42 | Outpatient (CLI) | payer BC, SELFPAY ==
[2018-06-17 23:50] LABS: ROM Internal Control Test YES-OK TO RESULT pt. (Internal QC); ROM Patient Test Negative (Negative); Record Kit Lot#, ROM+ J7836
[2018-06-17 23:56] VITALS: BMI 30.2
--- NOTE | 2018-06-19 09:30 | OB.TRI.HP_ITS ---
History of Present Illness Was patient seen by the physician?: No Reason For Visit: R/O LABOR Date of Service: 06/17/18 Final CALEB: 06/24/18 Final CALEB Source: US <20 weeks Gestational age: 39 Weeks and 0 Days History of Present Illness: 39-week intrauterine presents with some leaking of fluid. Concerned about rupture of membranes. Allergies No Known Allergies Allergy (Verified 06/01/18 01:28) - Pertinent Past Medical History Medical History: Past Medical History (Last Updated 06/07/18 @ 06:07 by Mary Castellanos MD) Graves' disease in remission Laboratory Studies: Laboratory Tests 06/17/18 Range/Units 23:13 Vag Amniotic Fld Detect Negative (Negative) NST - FHR Rate Baby A NST Reactive:: Yes FHR Category:: Category I Impression/Plan 39-week intrauterine with some vaginal discharge. ROM test negative. Reactive nonstress test. Patient not in labor. Released to home with routine i nstructions.
== END 2018-06-18 00:15 | disposition home or self-care (01) ==
LOC: WPOUT 23:18 → WP 23:19
PROVIDERS: Referring Provider Obstetrics & Gynecology; Visit Provider Obstetrics & Gynecology
DX: O26.893 Other specified pregnancy related conditions, third trimester (principal); N89.8 Other specified noninflammatory disorders of vagina
CPT/HCPCS: 59025; 59050; 84112; 99218; G0378

== ENCOUNTER 2018-06-21 07:10 | Inpatient (IN) | payer BC, MEDICAID, SELFPAY ==
[2018-06-21 07:27] VITALS: BMI 29.7
[2018-06-21] MEDS: Lactated Ringers 1,000 ML 50 ML IV (07:35)
[2018-06-21] MEDS: Oxytocin 30 units/NS 500 ml 30 UNITS/500 ML IV.SOLN IV (07:55)
[2018-06-21 08:08] LABS: Hematocrit 33.1 % (37-47); Hemoglobin 11.1 g/dl (12.0-15.0); Mean Corp Hgb Conc 33.5 g/gl (32-36); Mean Corpuscular Hgb 29.1 pg (27.0-32.0); Mean Corpuscular Volume 86.6 fL (81-99); Mean Platelet Vol. 10.5 fl (6.2-12.0); Platelet Count 229 K/mm3 (150-450); RBC Distribution Width CV 12.6 % (11.6-14.6); RBC Distribution Width SD 38.4 fl (35.1-43.9); Red Blood Count 3.82 M/mm3 (4.2-5.4); White Blood Count 9.7 K/mm3 (4.4-11.0)
[2018-06-21 08:11] LABS: Scan Indicated on CBC? Y/N NO
[2018-06-21] MEDS: Nalbuphine 10 MG/ML Ampul IV (10:07)
[2018-06-21] MEDS: Oxytocin 30 units/NS 500 ml 30 UNITS/500 ML IV.SOLN 334 UNITS IV (12:00)
--- NOTE | 2018-06-21 12:23 | PCM.OB.VAG ---
Vaginal Delivery Maternal Presentation: Elective Induction Method of Induction: Pitocin, Amniotomy Amniotic Membrane Rupture Type: Artificial Amniotic Fluid Description: Clear Final CALEB: 06/24/18 Final CALEB Source: US <20 weeks Gestational age: 39 Weeks and 4 Days Date of Procedure: 06/21/18 Pre-Operative Diagnosis: IUP Post-Operative Diagnosis: IUP Surgery/ Procedure Performed: Spontaneous Vaginal Delivery Type of Anesthesia: Local with 1% lidocaine Description of Procedure: of a Viable Female with Apgars 9/9 with a normal 3 vessel placenta with cord around neck x 2 tight. No episiotomy. 3-4th degree ML laceration repaired with 3-0 Vicryl in layers under local. Sponges OK. Delivery physician: Ramirez Manriquez MD. Presentation: Vertex Placental Delivery Description: Spontaneous Placenta Disposition: [facility] Cord Vessel Description: 3 Vessels Cord Entanglement: Around neck x 2, tight Estimated Blood Loss: 250 cc Infant A gender: Female (1 minute): 9 (5 minute): 9 Episiotomy Description: None Laceration: Midline, Perineal Extension/lac, 4th Degree Medications given after delivery: IV Pitocin Complications: None
--- NOTE | 2018-06-21 12:29 | PCM.DCVAG ---
Discharge Diet: No Restrictions Discharge Activity: May Shower, May Take a Tub Bath May resume sexual activity in: 4-6 weeks Additional Activity Instructions:: Nothing in the vagina for 4-6 weeks. You may return to work/school in 6 weeks. No bearing down with bowel movements for 4 weeks. Use stool softener for 4-6 weeks. Call your doctor if you observe: Fever of 101 or Higher, Inability to urinate, Inability to have a bowel movement, Using more than one pad per hour Additional Instructions: If you experience any of the following, contact your healthcare provider. Bleeding that soaks a pad every hour for 2 hours Unrelieved incision or abdominal pain Swelling, redness, discharge or bleeding from your incision or episiotomy site Your incision begins to separate Problems urinating (including inability to urinate or burning while urinating). Visual changes Severe headache Flu-like symptoms Pain or redness in one of both of your breasts Pain, warmth, tenderness or swelling in your legs, especially the calf area Frequent nausea and vomiting Symptoms of depression or anxiety If you experience any of the following, call 911 or go to the nearest Emergency Room. Chest pain Problems breathing Seizure activity Partial or complete paralysis of a body part, slurred speech, weakness or drooping of the face, or a sudden inability to walk or hold your balance Allergies/Adverse Reactions: Allergies No Known Allergies Allergy (Verified 06/21/18 07:25) Medications to take at Discharge Pnv No.103/Folic/Om3s/Fish Oil [ Gummies] 2 each PO DAILY 05/23/18 Please Follow Up With: Ramirez Manriquez MD - [phone] When: Call to make an appointment with your doctor in 6 weeks. Test Results: Test results from this visit will be discussed in further detail at your follow-up appointment, if applicable.
[2018-06-21] MEDS: Oxytocin 30 units/NS 500 ml 30 UNITS/500 ML IV.SOLN 167 UNITS IV (12:30)
--- NOTE | 2018-06-21 12:30 | NURSING ---
To room with Dr Rinaldi , patient states had been taking CBD oil but states it was in the beginning of the only. Discussed with patient can not breast feed if using THC in any form and the research on the effect on breast milk and the . Patient states had only used in the beginning of and will not be using THC.
--- NOTE | 2018-06-21 12:32 | DCINST_ITS ---
Discharge Diet: No Restrictions Discharge Activity: May Shower, May Take a Tub Bath May resume sexual activity in: 4-6 weeks Additional Activity Instructions:: Nothing in the vagina for 4-6 weeks. You may return to work/school in 6 weeks. No bearing down with bowel movements for 4 weeks. Use stool softener for 4-6 weeks. Call your doctor if you observe: Fever of 101 or Higher, Inability to urinate, Inability to have a bowel movement, Using more than one pad per hour Additional Instructions: If you experience any of the following, contact your healthcare provider. * Bleeding that soaks a pad every hour for 2 hours * Unrelieved incision or abdominal pain * Swelling, redness, discharge or bleeding from your incision or episiotomy site * Your incision begins to separate * Problems urinating (including inability to urinate or burning while urinating). * Visual changes * Severe headache * Flu-like symptoms * Pain or redness in one of both of your breasts * Pain, warmth, tenderness or swelling in your legs, especially the calf area * Frequent nausea and vomiting * Symptoms of depression or anxiety If you experience any of the following, call 911 or go to the nearest Emergency Room. * Chest pain * Problems breathing * Seizure activity * Partial or complete paralysis of a body part, slurred speech, weakness or drooping of the face, or a sudden inability to walk or hold your balance Allergies/Adverse Reactions: Allergies No Known Allergies Allergy (Verified 06/21/18 07:25) Medications to take at Discharge Pnv No.103/Folic/Om3s/Fish Oil [ Gummies] 2 each PO DAILY 05/23/18 Please Follow Up With: Ramirez Manriquez MD - [phone] When: Call to make an appointment with your doctor in 6 weeks. Test Results: Test results from this visit will be discussed in further detail at your follow- up appointment, if applicable.
[2018-06-21] MEDS: Ibuprofen 600 MG Tablet PO (13:09)
[2018-06-21 16:20] VITALS: BP 105/61; PULSE 86; RESP 16; TEMP 36.6; O2SAT 97
[2018-06-21] MEDS: Dibucaine 30 GM Tube 1 APPLIC TOPICAL (16:59)
[2018-06-21] MEDS: Acetaminophen 650 MG/20 ML UDC 1000 MG PO (18:47)
[2018-06-21 20:10] VITALS: BP 98/53; PULSE 83; RESP 16; TEMP 36.3; O2SAT 98
[2018-06-21] MEDS: Ibuprofen 100 MG/5 ML UDC 600 MG PO (21:06)
[2018-06-21 23:55] VITALS: BP 101/53; PULSE 78; RESP 16; TEMP 37.1; O2SAT 97
[2018-06-22 03:30] VITALS: BP 102/58; PULSE 81; RESP 16; TEMP 36.7; O2SAT 98
[2018-06-22] MEDS: Acetaminophen 650 MG/20 ML UDC 1000 MG PO (03:30)
[2018-06-22 07:52] VITALS: BP 97/64; PULSE 70; RESP 16; TEMP 36.8; O2SAT 99
[2018-06-22] MEDS: Psyllium 1 PACKET PO (08:05)
[2018-06-22] MEDS: Ibuprofen 100 MG/5 ML UDC 600 MG PO ×2 (08:05→18:21)
--- NOTE | 2018-06-22 10:52 | PCM.PN.OB ---
Subjective: Patient without complaints. Breast-feeding going well. Wants to go home but baby needs to stay until tomorrow. - Physical Exam Vital Signs Temp Pulse Resp BP Pulse Ox 98.2 F 70 16 97/64 99 06/22/18 07:52 06/22/18 07:52 06/22/18 07:52 06/22/18 07:52 06/22/18 07:52 Oxygen Delivery Method Room Air Weight: 173 lb 4.533 oz Body Mass Index (BMI) 29.7 Intake and Output for Last 24 Hours 06/20/18 06/21/18 06/22/18 23:59 23:59 23:59 Intake Total 2217 / 2217 Output Total 2600 / 2600 Balance -383 / -383 Laboratory Tests Past 24 Hrs 06/21/18 15:00 Screen NEGATIVE Baby's Blood Type A POSITIVE Baby's AUGUSTUS NEGATIVE Medical Necessity - Tobacco Use Smoking Status: Current every day smoker Assessment/Plan Doing well day #1. Continuing present care.
[2018-06-22 13:52] VITALS: BP 108/65; PULSE 78; RESP 16; TEMP 36.7; O2SAT 99
[2018-06-22 19:50] VITALS: BP 100/61; PULSE 89; RESP 18; TEMP 37.2; O2SAT 98
[2018-06-23 02:20] VITALS: BP 99/55; PULSE 90; RESP 16; TEMP 36.9
[2018-06-23 07:30] VITALS: BP 97/62; PULSE 77; RESP 16; TEMP 37.3; O2SAT 99
[2018-06-23] MEDS: Ibuprofen 100 MG/5 ML UDC 600 MG PO (07:51)
[2018-06-23] MEDS: Psyllium 1 PACKET PO (07:52)
--- NOTE | 2018-06-23 11:30 | PCM.PN.OB ---
Subjective: Patient without complaints. Breast-feeding going well. Positive bowel movement. Ready to go home today. - Physical Exam Vital Signs Temp Pulse Resp BP Pulse Ox 99.1 F 77 16 97/62 99 06/23/18 07:30 06/23/18 07:30 06/23/18 07:30 06/23/18 07:30 06/23/18 07:30 Oxygen Delivery Method Room Air Weight: 173 lb 4.533 oz Body Mass Index (BMI) 29.7 Intake and Output for Last 24 Hours 06/21/18 06/22/18 06/23/18 23:59 23:59 23:59 Intake Total 2217 / 2217 Output Total 2600 / 2600 Balance -383 / -383 Medical Necessity - Tobacco Use Smoking Status: Current every day smoker Assessment/Plan Doing well day #2 status post routine vaginal delivery. Will release to home with routine instructions. Continue stool softener at home.
[2018-06-23 11:50] VITALS: BP 97/54; PULSE 64; RESP 18; TEMP 36.6
== END 2018-06-23 11:40 | disposition home or self-care (01) | DRG 768 ==
PROVIDERS: Admitting Provider Obstetrics & Gynecology; Referring Provider Obstetrics & Gynecology; Visit Provider Obstetrics & Gynecology
DX: O69.1XX0 Labor and delivery complicated by cord around neck, with compression, not applicable or unspecified (principal); O70.3 Fourth degree perineal laceration during delivery; O99.334 Smoking (tobacco) complicating childbirth; Z3A.39 39 weeks gestation of pregnancy; Z37.0 Single live birth
CPT/HCPCS: 59025; 59050; 84112; 85027; 85461; 86850; 86900; 90384; 99218; J7120; G0378; J2790

== ENCOUNTER → 2018-07-31 14:57 | Outpatient (CLI) | payer BC, SELFPAY ==
[2018-08-02 16:16] LABS: HPV Reflexed? NOT INDICATED
== END ==
PROVIDERS: Visit Provider Obstetrics & Gynecology
DX: Z12.4 Encounter for screening for malignant neoplasm of cervix (principal)
CPT/HCPCS: 87624; 88175; G0145

== ENCOUNTER → 2020-08-23 09:36 | Outpatient (CLI) | payer BC, SELFPAY ==
--- NOTE | 2020-08-23 09:46 | US_ITS ---
STUDY: ULTRASOUND BREAST - LEFT REASON FOR EXAM: Female, 29 years old. Palpable lump left breast. TECHNIQUE: Axial and longitudinal images of the LEFT breast were performed with a high resolution ultrasound transducer. # OF IMAGES: 27 COMPARISON: Comparison is made with prior mammogram done earlier in the day. FINDINGS: LEFT Breast: The left breast was examined by ultrasound. No sonographic abnormality is seen. Dense fibroglandular tissue. US/Breast Limited Unilateral IMPRESSION: No sonographic abnormality is seen. ASSESSMENT CATEGORY: BIRADS Category 1: Negative. A letter regarding these results will be sent to the patient by the facility within 30 days. Electronically Signed: Travis Perez MD at 11:17 EDT , Service support ,
--- NOTE | 2020-08-23 09:46 | BI_ITS ---
MAMMOGRAPHY - BILATERAL DIAGNOSTIC REASON FOR EXAM: Female, 29 years old. 3 week history of a left breast lump at the 6 o''clock position of the breast. PERTINENT HISTORY: Non-contributory. TECHNIQUE: Digital bilateral breast erik (3D mammographic acquisition) in the CC and MLO projections. 2-D mediolateral oblique (MLO) and craniocaudad (CC) views of both breasts were obtained. CAD: Full Field Digital Mammography with Computer Added Detection was performed. COMPARISON: None. Baseline examination. FINDINGS: Breast Composition: The breasts are extremely dense, which lowers the sensitivity of mammography. There are no dominant masses or suspicious calcifications. There is a 7.5 mm well-defined nodule in the axillary region of the right breast, this most likely represents a small axillary lymph nodes. No other significant abnormalities are identified. BI/DIAG MAMM W/CAD, BILAT IMPRESSION: Negative diagnostic mammogram. With the patient''s history of a palpable left breast lump, correlation with ultrasound is recommended. ASSESSMENT CATEGORY: BIRADS Category 0: Incomplete. Need additional imaging evaluation. A letter regarding these results will be sent to the patient by the facility within 30 days. Approximately 10% of breast cancers are not detected by mammography. A normal mammogram should not delay biopsy of a clinically suspicious abnormality. Electronically Signed: Travis Perez MD at 10:36 EDT , Service support ,
== END ==
PROVIDERS: PCP Family Medicine; Referring Provider Family Medicine; Visit Provider Family Medicine
DX: N63.20 Unspecified lump in the left breast, unspecified quadrant (principal)
CPT/HCPCS: 76642; 77062; 77066; G0279